=== PATIENT | male | born 2000 ===

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

== ENCOUNTER 2022-01-19 09:34 | Emergency (ER) | payer MEDICAID, SELFPAY ==
[2022-01-19 09:55] VITALS: BP 118/74; PULSE 75; RESP 18; TEMP 36.6; O2SAT 98; BMI 36.0
--- OUTSIDE RECORDS SUMMARY | 2022-01-19 10:10 | XMS_ITS | Continuity of Care Document ---
:2000 Author Organization [address], [address] [place] [address]- Care Team Providers Name Role Phone Gordon WALTER, Abhi Brice Primary Care Physician Encounter [facility] [place] Date(s): 05/01/20 - 05/31/[address], [address] [place], [place] [address] Allergies, Adverse Reactions, Alerts Substance Reaction Severity Status NKA Active Medications 19 g needle 19 g needle, See Instructions, # 2 each, Refills 1, Tot. Refills 1, Maintenance, use to mix Solu-Cortef, 09/01/14 15:14:59, Compound Start Date: 09/01/14 Status: Ordered3 mL syringe 3 mL syringe, See Instructions, # 2 each, Refills 11, Tot. Refills 11, Maintenance, Use to administer solu-cortef, 12/29/18 17:52:00 EDT, Compound Start Date: 12/29/18 Status: OrderedBD 3 ml 21g/1ml syringe BD 3 ml 21g/1ml syringe, See Instructions, # 2 each, Refills 1, Tot. Refills 1, Maintenance, use to administer Solu-Cortef, 09/01/14 15:11:38, Compound Start Date: 09/01/14 Status: OrderedCortef 5 mg oral tablet See Instructions, 2 tablets By Mouth in the morning, 1 tablet by mouth in the evening; double the dose and give every 6 hours in the setting of fever, # 120 tablet, 5 Refills, Maintenance, 08/04/19 15:59:00 EDT, [facility], 165, cm, 0... Start Date: 08/04/19 Status: Ordereddesmopressin 0.1 mg oral tablet 1 tablet = 0.1 mg, By Mouth, 2 times a day, Directions in Guyanese. 1 tablet, twice daily., # 180 tablet, 5 Refills, Maintenance, 01/17/20 9:49:00 EDT, Tablet, [facility], 164, cm, 12/09/19 10:04:00 EDT, Height, 94.8, kg, 12/09/19 10:0... Start Date: 01/17/20 Stop Date: 07/10/21 Status: OrderedFlintstones with Iron Chewable Multiple Vitamins with Iron oral tablet, chewable 1 tablet, Chew, Daily, # 30 tablet, 6 Refills, Maintenance, 03/18/17 17:46:27, Chew Tablet Start Date: 03/18/17 Status: Orderedhydrocortisone 100 mg preservative-free injection = 50 mg, IV Infusion, Once, # 1 each, 0 Refills, Soft Stop, 04/26/14 17:53:46, 50 mg IV Infusion Once Start Date: 04/26/14 Status: Orderedlevothyroxine 150 mcg (0.15 mg) oral tablet 1 tablet = 150 mcg, By Mouth, Daily, # 30 tablet, 11 Refills, Maintenance, 01/17/20 9:49:00 EDT, Tablet, [facility], dose change, 164, cm, 12/09/19 10:04:00 EDT, Height, 94.8, kg, 12/09/19 10:04:00 EDT, Dry Weight Start Date: 01/17/20 Stop Date: 01/11/21 Status: OrderedSolu-CORTEF Act-O-Vial 100 mg injection = 50 mg, Intramuscular, Once, # 1 each, 3 Refills, Soft Stop, 12/29/18 15:47:00 EDT Start Date: 12/29/18 Status: OrderedSolu-CORTEF Act-O-Vial 100 mg injection = 50 mg, Intramuscular, Once, # 1 each, 3 Refills, Soft Stop, 03/28/20 11:09:00 EST, [facility]/pharmacy #[id number], 164, cm, 03/24/20 9:10:00 EST, Height, 94.8, kg, 03/24/20 9:10:00 EST, Dry Weight Start Date: 03/28/20 Status: Orderedsyringe needle 25g x 1in syringe needle 25g x 1in, See Instructions, # 2 each, Refills 11, Tot. 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
--- OUTSIDE RECORDS SUMMARY | 2022-01-19 10:10 | XMS_ITS | Continuity of Care Document ---
:2000 Author Organization [facility] Address [address] [place] [phone]- Care Team Providers Name Role Phone Abhi Leyva MD Primary Care Physician Encounter [facility] [place] Date(s): 07/29/19 - 08/05/19 [facility] [address] [place] [phone]- [facility] Attending Physician: Zoey Servin MD Allergies, Adverse Reactions, Alerts Substance Reaction Severity Status NKA Active Medications 18 gauge needle 18 gauge needle, See Instructions, # 6 each, Refills 3, Tot. Refills 3, Maintenance, Use to draw up testosterone, 10/13/18 13:17:20 EDT, Compound Start Date: 10/13/18 Status: [id number] g needle 19 g needle, See Instructions, # 2 each, Refills 1, Tot. Refills 1, Maintenance, use to mix Solu-Cortef, 09/01/14 15:14:59, Compound Start Date: 09/01/14 Status: Ordered3 mL syringe 3 mL syringe, See Instructions, # 2 each, Refills 11, Tot. Refills 11, Maintenance, Use to administer solu-cortef, 12/29/18 17:52:00 EDT, Compound Start Date: 12/29/18 Status: [id number] syringe with 21G 1' needle 3ml syringe with 21G 1' needle, See Instructions, # 6 each, Refills 3, Tot. Refills 3, Maintenance, Use to administer testosterone every 2 weeks. Ok to substitute, 10/13/18 13:21:49 EDT, Compound Start Date: 10/13/18 Status: OrderedBD 3 ml 21g/1ml syringe BD [...] tablet, 5 Refills, Maintenance, 08/04/19 15:59:00 EDT, [facility], 165, cm, 0... Start Date: 08/04/19 Status: Ordereddesmopressin 0.1 mg oral tablet 1 tablet = 0.1 mg, By Mouth, 2 times a day, Directions in Armenian. 1 tablet, twice daily., # 180 tablet, 5 Refills, Maintenance, 01/20/19 13:45:21 EDT, Tablet Start Date: 01/20/19 Stop Date: 07/13/20 Status: OrderedFlintstones with Iron Chewable Multiple Vitamins with Iron oral tablet, chewable 1 tablet, Chew, Daily, # 30 tablet, 6 Refills, Maintenance, 03/18/17 17:46:27, Chew Tablet Start Date: 03/18/17 Status: OrderedGenotropin 13.8 mg subcutaneous injection See Instructions, subcutaneous injection daily. alternate between 0.2 mg daily MWFSun and 0.4 mg daily TThSat, # 1 each, 11 Refills, Maintenance, 03/04/19 9:49:16 EST, Product switch Start Date: 03/04/19 Status: Orderedhydrocortisone 100 mg preservative-free injection = 50 mg, IV Infusion, Once, # 1 each, 0 Refills, Soft Stop, 04/26/14 17:53:46, 50 mg IV Infusion Once Start Date: 04/26/14 Status: Orderedlevothyroxine 150 mcg (0.15 mg) oral tablet 1 tablet = 150 mcg, By Mouth, Daily, # 30 tablet, 11 Refills, Maintenance, 01/20/19 13:44:12 EDT, Tablet, dose change Start Date: 01/20/19 Stop Date: 01/15/20 Status: OrderedPen Fajardo, 31 G x 5 mm BD Ultra Fine III See Instructions, # 100 each, Refills 11, Tot. Refills 11, Maintenance, use to administer growth hormone, 10/29/18 9:19:54 EDT, Compound Start Date: 10/29/18 Status: Orderedphentermine 15 mg oral capsule 1 capsule = 15 mg, By Mouth, Daily in AM, # 30 capsule, 3 Refills, Acute 01/31/20 9:51:00 EDT, 01/29/19 9:51:32 EDT Start Date: 01/29/19 Stop Date: 01/31/20 Status: OrderedSolu-CORTEF Act-O-Vial 100 mg injection = 50 mg, Intramuscular, Once, # 1 each, 3 Refills, Soft Stop, 12/29/18 15:47:00 EDT Start Date: 12/29/18 Status: Orderedsyringe needle 25g x 1in syringe needle 25g x 1in, See Instructions, # 2 each, Refills 11, Tot. Refills 11, Maintenance, Use to administer solu-cortef, 12/29/18 17:52:00 EDT, Compound Start Date: 12/29/18 Status: Orderedtestosterone 4 mg/24 hr transdermal film, extended release 1, patch, Topically, Daily at bedtime, apply to back, abdomen, upper arms, or thighs. 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
--- OUTSIDE RECORDS SUMMARY | 2022-01-19 10:10 | XMS_ITS | Continuity of Care Document ---
:2000 Author Organization [facility] Address [address] [place] [address]- Care Team Providers Name Role Phone Abhi Leyva MD Primary Care Physician Encounter [facility] [id number] Date(s): 06/04/19 - 06/14/19 [facility] [address] [place] [address]- [place] Attending Physician: Admtr, Codey Admitting Physician: Admtr, Ar8 Referring Physician: Admtr, Ar8 Allergies, Adverse Reactions, Alerts Substance Reaction Severity Status NKA Active Medications 18 gauge needle 18 gauge needle, See Instructions, # 6 each, Refills 3, Tot. Refills 3, Maintenance, Use to draw up testosterone, 10/13/18 13:17:20 EDT, Compound Start Date: 10/13/18 Status: Mxujbap15 g needle 19 g needle, See Instructions, # 2 each, Refills 1, Tot. Refills 1, Maintenance, use to mix Solu-Cortef, 09/01/14 15:14:59, Compound Start Date: 09/01/14 Status: Ordered3 mL syringe 3 mL syringe, See Instructions, # 2 each, Refills 11, Tot. Refills 11, Maintenance, Use to administer solu-cortef, 12/29/18 17:52:00 EDT, Compound Start Date: 12/29/18 Status: [id number] syringe with 21G 1' needle 3ml syringe [...] fever, # 120 tablet, 5 Refills, Maintenance, 01/20/19 13:43:24 EDT Start Date: 01/20/19 Status: Ordereddesmopressin 0.1 mg oral tablet 1 tablet = 0.1 mg, By Mouth, 2 times a day, Directions in Uruguayan. 1 tablet, twice daily., # 180 tablet, [...] Date: 01/20/19 Stop Date: 01/15/20 Status: OrderedPen Koppel, 31 G x 5 mm BD Ultra [...] arms, or thighs. Pls send instructions in Uruguayan., # 30 patch, 5 Refills, Maintenance, Panhypopituitarism with hypogonadism Start Date: 03/01/19 Stop Date: 08/28/19 Status: Orderedtestosterone cypionate 200 mg/mL intramuscular solution See Instructions, dispense 2 vials for 30 day supply for home administration. 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
--- OUTSIDE RECORDS SUMMARY | 2022-01-19 10:10 | XMS_ITS | Continuity of Care Document ---
:2000 Author Organization [facility] Address [address] [place] [id number]- Care Team Providers Name Role Phone Gordon WALTER, Abhi Brice Primary Care Physician [place] [facility] [place](s): 03/24/20 - 04/23/20 [facility] [address] [place] [id number]- Attending Physician: Admtr, Ar8 Admitting Physician: Admtr, Ar8 Referring Physician: Admtr, [...] tablet, 5 Refills, Maintenance, 08/04/19 15:59:00 EDT, [facility], 165, cm, 0... Start Date: 08/04/19 Status: Ordereddesmopressin 0.1 mg oral tablet 1 tablet = 0.1 mg, By Mouth, 2 times a day, Directions in Cook Islander. 1 tablet, twice daily., # 180 tablet, 5 Refills, Maintenance, 01/17/20 9:49:00 EDT, Tablet, [facility], 164, cm, 12/09/19 10:04:00 EDT, Height, [...] 11 Refills, Maintenance, 01/17/20 9:49:00 EDT, Tablet, [facility], dose change, 164, cm, 12/09/19 10:04:00 [...] 3 Refills, Soft Stop, 03/28/20 11:09:00 EST, [facility]/pharmacy #[id number], 164, cm, 03/24/20 9:10:00 EST, Height, [...]
--- OUTSIDE RECORDS SUMMARY | 2022-01-19 10:10 | XMS_ITS | Continuity of Care Document ---
:2002 Author Organization [facility] Address [address] [place] [address]- Care Team Providers Name Role Phone Gordon WALTER, Abhi Brice Primary Care Physician Encounter [facility] [place] Date(s): 03/31/20 - 04/30/20 [facility] [address] [place] [address]- Allergies, Adverse Reactions, Alerts Substance Reaction Severity [...] tablet, 5 Refills, Maintenance, 08/04/19 15:59:00 EDT, [facility], 165, cm, 0... Start Date: 08/04/19 Status: Ordereddesmopressin 0.1 mg oral tablet 1 tablet = 0.1 mg, By Mouth, 2 times a day, Directions in Monegasque. 1 tablet, twice daily., # 180 tablet, 5 Refills, Maintenance, 01/17/20 9:49:00 EDT, Tablet, [facility], 164, cm, 12/09/19 10:04:00 EDT, [...] 11 Refills, Maintenance, 01/17/20 9:49:00 EDT, Tablet, [facility], dose change, 164, cm, 12/09/19 [...] 3 Refills, Soft Stop, 03/28/20 11:09:00 EST, [facility]/pharmacy #[id number], 164, cm, 03/24/20 9:10:00 EST, Height, [...]
--- OUTSIDE RECORDS SUMMARY | 2022-01-19 10:10 | XMS_ITS | Continuity of Care Document ---
:2000 Author Organization [facility] Address [address] [place] [id number]- Care Team Providers Name Role Phone Abhi Leyva MD Primary Care Physician [place] [facility] [place](s): 10/20/20 - 11/19/20 [facility] [address] [place] [id number]- Allergies, Adverse Reactions, Alerts Substance Reaction Severity [...] fever, # 120 tablet, 5 Refills, Maintenance, 10/26/20 15:33:00 EDT, [facility] #[id number], 164, cm, 05/31/20 9... Start Date: 10/26/20 Status: Ordereddesmopressin 0.1 mg oral tablet 1 tablet = 0.1 mg, By Mouth, 2 times a day, Directions in Danish. 1 tablet, twice daily., # 180 tablet, 5 Refills, Maintenance, 10/26/20 15:33:00 EDT, Tablet, [facility]/pharmacy #[id number], 164, cm, 05/31/20 9:06:00 EST, Height, 94.8, kg, 03/24/20 9:10:00 EST,... Start Date: 10/26/20 Stop Date: 04/19/22 Status: OrderedFlintstones with Iron Chewable Multiple Vitamins [...] Daily, # 30 tablet, 11 Refills, Maintenance, 10/26/20 15:34:00 EDT, Tablet, [facility]/pharmacy #[id number], dose change, 164, cm, 05/31/20 9:06:00 EST, Height, 94.8, kg, 03/24/20 9:10:00 EST, Dry Weight Start Date: 10/26/20 Stop Date: 10/21/21 Status: OrderedSolu-CORTEF Act-O-Vial 100 mg injection = 50 mg, Intramuscular, Once, # 1 each, 3 Refills, Soft Stop, 12/29/18 15:47:00 EDT Start Date: 12/29/18 Status: OrderedSolu-CORTEF Act-O-Vial 100 mg injection = 50 mg, Intramuscular, Once, # 1 each, 3 Refills, Soft Stop, 10/26/20 15:33:00 EDT, [facility]/pharmacy #[id number], 164, cm, 05/31/20 9:06:00 EST, Height, 94.8, kg, 03/24/20 9:10:00 EST, Dry Weight Start Date: 10/26/20 Status: Orderedsyringe needle 25g x 1in syringe [...]
--- OUTSIDE RECORDS SUMMARY | 2022-01-19 10:10 | XMS_ITS | Continuity of Care Document ---
:2000 Author Organization [facility] Address [address] [place] [id number]- Care Team Providers Name Role Phone Abhi Leyva MD Primary Care Physician [place] [facility] [place] 06/30/[address] [address] Attending Physician: Abhi Leyva MD Admitting Physician: Abhi Leyva MD Referring Physician: Abhi Leyva MD Allergies, Adverse Reactions, Alerts Substance Reaction [...] tablet, 5 Refills, Maintenance, 08/04/19 15:59:00 EDT, [facility], 165, cm, 0... Start Date: 08/04/19 Status: Ordereddesmopressin 0.1 mg oral tablet 1 tablet = 0.1 mg, By Mouth, 2 times a day, Directions in Botswanan. 1 tablet, twice daily., # 180 tablet, 5 Refills, Maintenance, 01/17/20 9:49:00 EDT, Tablet, [facility], 164, cm, 12/09/19 10:04:00 EDT, Height, [...] 11 Refills, Maintenance, 01/17/20 9:49:00 EDT, Tablet, [facility], dose change, 164, cm, 12/09/19 [...] Soft Stop, 03/28/20 11:09:00 EST, [facility]/pharmacy #[id number], 164, cm, 03/24/20 9:10:00 EST, Height, [...]
--- OUTSIDE RECORDS SUMMARY | 2022-01-19 10:10 | XMS_ITS | Continuity of Care Document ---
:2002 Author Organization [facility] Address [address] [place] [phone]- Care Team Providers Name Role Phone Abhi Leyva MD Primary Care Physician Encounter [facility] [place] Date(s): 04/05/19 - 04/12/19 [facility] [address] [place] [phone]- [facility] Attending Physician: Zoey Servin MD Referring Physician: Abhi Leyva MD Allergies, Adverse Reactions, Alerts Substance Reaction Severity Status NKA Active Medications 18 gauge needle 18 gauge needle, See Instructions, # 6 each, Refills 3, Tot. Refills 3, Maintenance, Use to draw up testosterone, 10/13/18 13:17:20 EDT, Compound Start Date: 10/13/18 Status: Inkuubb31 g needle 19 g needle, See Instructions, # 2 each, Refills 1, Tot. Refills 1, Maintenance, use to mix Solu-Cortef, 09/01/14 15:14:59, Compound Start Date: 09/01/14 Status: Ordered3 mL syringe 3 mL syringe, See Instructions, # 2 each, Refills 11, Tot. Refills 11, Maintenance, Use to administer solu-cortef, 12/29/18 17:52:00 EDT, Compound Start Date: 12/29/18 Status: [id number] syringe with 21G 1' needle 3ml syringe [...] Mouth, 2 times a day, Directions in Burkinan. 1 tablet, twice daily., # 180 tablet, [...] Date: 01/20/19 Stop Date: 01/15/20 Status: OrderedPen [place], 31 G x 5 mm BD Ultra [...] arms, or thighs. Pls send instructions in Burkinan., # 30 patch, 5 Refills, Maintenance, Panhypopituitarism with hypogonadism Start Date: 03/01/19 Stop Date: 08/28/19 Status: Orderedtestosterone cypionate 200 mg/mL intramuscular solution See Instructions, dispense 2 vials for 30 day supply for home administration. 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
--- OUTSIDE RECORDS SUMMARY | 2022-01-19 10:10 | XMS_ITS | Continuity of Care Document ---
:2002 Author Organization [facility] Address [address] [place] [id number]- Care Team Providers Name Role Phone Abhi Leyva MD Primary Care Physician Encounter [facility] [place] Date(s): 04/28/19 - 05/05/[address] [phone] [facility] Attending Physician: Zoey Servin MD Allergies, Adverse Reactions, Alerts Substance Reaction Severity Status NKA Active Medications 18 gauge needle 18 gauge needle, See Instructions, # 6 each, Refills 3, Tot. Refills 3, Maintenance, Use to draw up testosterone, 10/13/18 13:17:20 EDT, Compound Start Date: 10/13/18 Status: [id number] g needle 19 g needle, See Instructions, # 2 each, Refills 1, Tot. Refills 1, Maintenance, use to mix Solu-Cortef, 09/01/14 15:14:59, Compound Start Date: 09/01/14 Status: Ordered3 mL syringe 3 mL syringe, See Instructions, # 2 each, Refills 11, Tot. Refills 11, Maintenance, Use to administer solu-cortef, 12/29/18 17:52:00 EDT, Compound Start Date: 12/29/18 Status: Imblbyy2fo syringe with 21G 1' needle 3ml syringe [...] Mouth, 2 times a day, Directions in Japanese. 1 tablet, twice daily., # 180 tablet, [...] Date: 01/20/19 Stop Date: 01/15/20 Status: OrderedPen [place], 31 G x 5 mm BD Ultra [...] arms, or thighs. Pls send instructions in Japanese., # 30 patch, 5 Refills, Maintenance, Panhypopituitarism with hypogonadism Start Date: 03/01/19 Stop Date: 08/28/19 Status: Orderedtestosterone cypionate 200 mg/mL intramuscular solution See Instructions, dispense 2 vials for 30 day supply for home administration. 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
--- OUTSIDE RECORDS SUMMARY | 2022-01-19 10:10 | XMS_ITS | Continuity of Care Document ---
:2002 Author Organization [facility] Address [address] [place] [id number]- Care Team Providers Name Role Phone Abhi Leyva MD Primary Care Physician Encounter [facility] [place] Date(s): 10/24/21 - 11/23/21 [facility] [address] [place] [phone]- [place] Allergies, Adverse Reactions, Alerts No Known Allergies Medications Cortef 5 mg oral tablet See Instructions, 4 tablets By Mouth every 6 hours in the setting of fever, # 30 each, 11 Refills, Maintenance, 11/05/21 13:16:00 EDT, [facility], 165.7, cm, 01/30/21 13:27:00 EDT, Height, 95, kg, 01/30/21 13:27:00 EDT, Dry Weight Start Date: 11/05/21 Status: Ordereddesmopressin 0.1 mg oral tablet 1 tablet = 0.1 mg, By Mouth, 2 times a day, Directions in Cypriot. 1 tablet, twice daily., # 60 tablet, 11 Refills, Maintenance, 04/25/23 18:33:00 EST, Tablet, [facility], 165.7, cm, 01/30/21 13:27:00 EDT, Height, 95, kg, 01/30/21 13... Start Date: 04/25/23 Status: Ordereddesmopressin 0.1 mg oral tablet 1 tablet = 0.1 mg, By Mouth, 2 times a day, for 90 days, Directions in Cypriot. 1 tablet, twice daily., # 180 tablet, 5 Refills, Hard Stop 04/25/23 18:33:00 EST, 11/01/21 18:33:00 EDT, Tablet, [facility], 165.7, cm, 01/30/21 13:27:00... Start Date: 11/01/21 Stop Date: 04/25/23 Status: Ordereddexamethasone 0.5 mg oral tablet 0.5 tablet = 0.25 mg, By Mouth, Daily, # 15 tablet, 11 Refills, Maintenance, 11/05/21 13:16:00 EDT, [facility], Partial fill upon patient request if the prescription is for a scheduleII opioid drug., 165.7, cm, 01/30/21 13:27:00 EDT... Start Date: 11/05/21 Status: OrderedFlintstones with Iron Chewable Multiple Vitamins with Iron oral tablet, chewable 1 tablet, Chew, Daily, # 30 tablet, 6 Refills, Maintenance, 03/18/17 17:46:27, Chew Tablet Start Date: 03/18/17 Status: Orderedlevothyroxine 150 mcg (0.15 mg) oral tablet 1 tablet = 150 mcg, By Mouth, Daily, # 30 tablet, 11 Refills, Maintenance, 10/27/22 18:34:00 EDT, Tablet, [facility], dose change, 165.7, cm, 01/30/21 13:27:00 EDT, Height, 95, kg, 01/30/21 13:27:00 EDT, Dry Weight Start Date: 10/27/22 Status: Orderedlevothyroxine 150 mcg (0.15 mg) oral tablet 1 tablet = 150 mcg, By Mouth, Daily, for 30 days, # 30 tablet, 11 Refills, Hard Stop 10/27/22 18:34:00 EDT, 11/01/21 18:34:00 EDT, Tablet, [facility], dose change, 165.7, cm, 01/30/21 13:27:00 EDT, Height, 95, kg, 01/30/21 13:27:00 ED... Start Date: 11/01/21 Stop Date: 10/27/22 Status: OrderedSolu-CORTEF Act-O-Vial 100 mg injection = 50 mg, Intramuscular, Once, # 1 each, 11 Refills, Soft Stop, 11/05/21 13:16:00 EDT, [facility], 165.7, cm, 01/30/21 13:27:00 EDT, Height, 95, kg, 01/30/21 13:27:00 EDT, Dry Weight Start Date: 11/05/21 Status: Orderedsyringe needle 25g x 1in syringe needle 25g x 1in, See Instructions, # 1 each, Refills 11, Tot. Refills 11, Maintenance, Use to administer solu-cortef, 11/05/21 13:16:00 EDT, Compound, 165.7, cm, 01/30/21 13:27:00 EDT, Height,95, kg, 01/30/21 13:27:00 EDT, Dry Weight Start Date: 11/05/21 Status: Orderedtestosterone 20.25 mg/1.25 g (1.62%) transdermal gel 1 pack/packet, Topically, Daily in AM, apply to clean, dry, intact skin, # 30 pack/packet, 11 Refills, Maintenance, 11/05/21 13:16:00 EDT, Gel, [facility], Partial fill upon patient request if the prescription is for a schedule II op... 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
--- OUTSIDE RECORDS SUMMARY | 2022-01-19 10:11 | XMS_ITS | Continuity of Care Document ---
:2002 Author Organization [facility] Address [address] [place] [id number]- Care Team Providers Name Role Phone Abhi Leyva MD Primary Care Physician En[place] [facility] [place] Date(s): 12/29/19 - 01/28/20 [facility] [address] [place] [phone]- [facility] Allergies, Adverse Reactions, Alerts Substance Reaction Severity Status NKA Active Medications 18 gauge needle 18 gauge needle, See Instructions, # 6 each, Refills 3, Tot. Refills 3, Maintenance, Use to draw up testosterone, 10/13/18 13:17:20 EDT, Compound Start Date: 10/13/18 Status: Sfkdazz50 g needle 19 g needle, See Instructions, # 2 each, Refills 1, Tot. Refills 1, Maintenance, use to mix Solu-Cortef, 09/01/14 15:14:59, Compound Start Date: 09/01/14 Status: Ordered3 mL syringe 3 mL syringe, See Instructions, # 2 each, Refills 11, Tot. Refills 11, Maintenance, Use to administer solu-cortef, 12/29/18 17:52:00 EDT, Compound Start Date: 12/29/18 Status: Punumii9ft syringe with 21G 1' needle 3ml syringe with 21G 1' needle, See Instructions, # 6 each, Refills 3, Tot. Refills 3, Maintenance, Use to administer testosterone every 2 weeks. Ok to substitute, 10/13/18 13:21:49 EDT, Compound Start Date: 10/13/18 Status: OrderedAndroGel 20.25 mg (1.62%) transdermal gel 2 pack/packet, Topically, Daily in AM, apply to clean, dry, intact skin 2 doses a day, # 60 each, 11Refills, Maintenance, 12/10/19 14:27:00 EDT, [facility]/pharmacy #[id number], 164, cm, 12/09/19 10:04:00 EDT, Height, 94.8, kg, 12/09/19 10:04:00 EDT, Dry Weight Start Date: 12/10/19 Status: OrderedBD 3 ml 21g/1ml syringe BD [...] tablet, 5 Refills, Maintenance, 08/04/19 15:59:00 EDT, [facility], 165, cm, 0... Start Date: 08/04/19 Status: Ordereddesmopressin 0.1 mg oral tablet 1 tablet = 0.1 mg, By Mouth, 2 times a day, Directions in Ugandan. 1 tablet, twice daily., # 180 tablet, 5 Refills, Maintenance, 01/17/20 9:49:00 EDT, Tablet, [facility], 164, cm, 12/09/19 10:04:00 EDT, [...] TThSat, # 1 each, 11 Refills, Maintenance, 01/17/20 9:49:00 EDT, [facility], Product switch, 164, cm, 12/09/19 10:04:00 EDT, Height... Start Date: 01/17/20 Status: Orderedhydrocortisone 100 mg preservative-free injection = 50 mg, IV Infusion, Once, # 1 each, 0 Refills, Soft Stop, 04/26/14 17:53:46, 50 mg IV Infusion Once Start Date: 04/26/14 Status: Orderedlevothyroxine 150 mcg (0.15 mg) oral tablet 1 tablet = 150 mcg, By Mouth, Daily, # 30 tablet, 11 Refills, Maintenance, 01/17/20 9:49:00 EDT, Tablet, [facility], dose change, 164, cm, 12/09/19 10:04:00 EDT, Height, 94.8, kg, 12/09/19 10:04:00 EDT, Dry Weight Start Date: 01/17/20 Stop Date: 01/11/21 Status: OrderedPen [place], 31 G x 5 mm BD Ultra Fine III See Instructions, # 100 each, Refills 11, Tot. Refills 11, Maintenance, use to administer growth hormone, 11/01/19 9:11:00 EDT, Compound, 165, cm, 06/04/19 16:16:00 EST, Height, 95.1, kg, 04/05/19 15:41:00 EST, Dry Weight Start Date: 11/01/19 Status: Orderedphentermine 15 mg oral capsule 1 capsule = 15 mg, By Mouth, Daily in AM, # 30 capsule, 3 Refills, Maintenance, 01/03/20 10:14:00 EDT, [facility]/pharmacy #[id number], 164, cm, 12/09/19 10:04:00 EDT, Height, 94.8, kg, 12/09/19 10:04:00 EDT, Dry Weight Start Date: 01/03/20 Status: OrderedSolu-CORTEF Act-O-Vial 100 mg injection = [...] arms, or thighs. Pls send instructions in Ug[place]an., # 30 patch, 5 Refills, Maintenance, Panhypopituitarism [...]
--- OUTSIDE RECORDS SUMMARY | 2022-01-19 10:11 | XMS_ITS | Continuity of Care Document ---
:2002 Author Organization [facility] Address [address] [place] [address]- Care Team Providers Name Role Phone Abhi Leyva MD Primary Care Physician Encounter [facility] [place] Date(s): 06/07/19 - 06/17/19 [facility] [address] [place] [phone]- [facility] Attending Physician: Admtr, Ar8 Admitting Physician: Admtr, Ar8 Referring Physician: Admtr, Ar8 Allergies, Adverse Reactions, Alerts Substance Reaction Severity Status NKA Active Medications 18 gauge needle 18 gauge needle, See Instructions, # 6 each, Refills 3, Tot. Refills 3, Maintenance, Use to draw up testosterone, 10/13/18 13:17:20 EDT, Compound Start Date: 10/13/18 Status: Cwbxsef82 g needle 19 g needle, See Instructions, # 2 each, Refills 1, Tot. Refills 1, Maintenance, use to mix Solu-Cortef, 09/01/14 15:14:59, Compound Start Date: 09/01/14 Status: Ordered3 mL syringe 3 mL syringe, See Instructions, # 2 each, Refills 11, Tot. Refills 11, Maintenance, Use to administer solu-cortef, 12/29/18 17:52:00 EDT, Compound Start Date: 12/29/18 Status: Yvkmptb8br syringe with 21G 1' needle 3ml syringe [...] Mouth, 2 times a day, Directions in Fijian. 1 tablet, twice daily., # 180 tablet, [...] Date: 01/20/19 Stop Date: 01/15/20 Status: OrderedPen [place], 31 G x 5 mm BD Ultra [...] arms, or thighs. Pls send instructions in Fijian., # 30 patch, 5 Refills, Maintenance, Panhypopituitarism with hypogonadism Start Date: 03/01/19 Stop Date: 08/28/19 Status: Orderedtestosterone cypionate 200 mg/mL intramuscular solution See Instructions, dispense 2 vials for 30 day supply for home administration. 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
--- OUTSIDE RECORDS SUMMARY | 2022-01-19 10:11 | XMS_ITS | Continuity of Care Document ---
:2002 Author Organization [facility] Address [address] [place] [id number]- Care Team Providers Name Role Phone Abhi Leyva MD Primary Care Physician [place] [facility] [place] Date(s): 10/25/21 - 11/24/21 [facility] [address] [place] [id number]- Allergies, Adverse Reactions, Alerts No Known Allergies Medications Cortef 5 mg oral tablet See Instructions, 4 tablets By Mouth every 6 hours in the setting of fever, # 30 each, 11 Refills, Maintenance, 11/05/21 13:16:00 EDT, [facility], 165.7, cm, 01/30/21 13:27:00 EDT, Height, 95, kg, 01/30/21 13:27:00 EDT, Dry Weight Start Date: 11/05/21 Status: Ordereddesmopressin 0.1 mg oral tablet 1 tablet = 0.1 mg, By Mouth, 2 times a day, Directions in Liberian. 1 tablet, twice daily., # 60 tablet, 11 Refills, Maintenance, 04/25/23 18:33:00 EST, Tablet, [facility], 165.7, cm, 01/30/21 13:27:00 EDT, Height, 95, kg, 01/30/21 13... Start Date: 04/25/23 Status: Ordereddesmopressin 0.1 mg oral tablet 1 tablet = 0.1 mg, By Mouth, 2 times a day, for 90 days, Directions in Liberian. 1 tablet, twice daily., # 180 tablet, 5 Refills, Hard Stop 04/25/23 18:33:00 EST, 11/01/21 18:33:00 EDT, Tablet, [facility], 165.7, cm, 01/30/21 13:27:00... Start Date: 11/01/21 Stop Date: 04/25/23 Status: Ordereddexamethasone 0.5 mg oral tablet 0.5 tablet = 0.25 mg, By Mouth, Daily, # 15 tablet, 11 Refills, Maintenance, 11/05/21 13:16:00 EDT, [facility], Partial fill upon patient request if the [...] 11 Refills, Maintenance, 10/27/22 18:34:00 EDT, Tablet, [facility], dose change, 165.7, cm, 01/30/21 13:27:00 EDT, Height, 95, kg, 01/30/21 13:27:00 EDT, Dry Weight Start Date: 10/27/22 Status: Orderedlevothyroxine 150 mcg (0.15 mg) oral tablet 1 tablet = 150 mcg, By Mouth, Daily, for 30 days, # 30 tablet, 11 Refills, Hard Stop 10/27/22 18:34:00 EDT, 11/01/21 18:34:00 EDT, Tablet, [facility], dose change, 165.7, cm, 01/30/21 13:27:00 EDT, Height, 95, kg, 01/30/21 13:27:00 ED... Start Date: 11/01/21 Stop Date: 10/27/22 Status: OrderedSolu-CORTEF Act-O-Vial 100 mg injection = 50 mg, Intramuscular, Once, # 1 each, 11 Refills, Soft Stop, 11/05/21 13:16:00 EDT, [facility], 165.7, cm, 01/30/21 13:27:00 EDT, Height, 95, [...] 11 Refills, Maintenance, 11/05/21 13:16:00 EDT, Gel, [facility], Partial fill upon patient request if the [...]
--- OUTSIDE RECORDS SUMMARY | 2022-01-19 10:11 | XMS_ITS | Continuity of Care Document ---
:2002 Author Organization [facility] Address [address] [place] [address]- Care Team Providers Name Role Phone Thompson MILLS, Rut Burnham Primary Care Physician Encounter [facility] [place] [place] Date(s): 12/10/21 - 01/09/22 [facility] [address] [place] [phone]- Attending Physician: Codey Mathew Admitting Physician: Codey Mathew Referring Physician: Codey Mathew Allergies, Adverse Reactions, Alerts No Known Allergies Medications Cortef 5 mg oral tablet See Instructions, 4 tablets By Mouth every 6 hours in the setting of fever, # 30 each, 11 Refills, Maintenance, 11/05/21 13:16:00 EDT, [employer] [facility], 165.7, cm, 01/30/21 13:27:00 EDT, Height, 95, kg, 01/30/21 13:27:00 EDT, Dry Weight Start Date: 11/05/21 Status: Ordereddesmopressin 0.1 mg oral tablet 1 tablet = 0.1 mg, By Mouth, 2 times a day, Directions in Northern Irish. 1 tablet, twice daily., # 60 tablet, 11 Refills, Maintenance, 04/25/23 18:33:00 EST, Tablet, [employer] [facility], 165.7, cm, 01/30/21 13:27:00 EDT, Height, 95, kg, 01/30/21 13... Start Date: 04/25/23 Status: Ordereddesmopressin 0.1 mg oral tablet 1 tablet = 0.1 mg, By Mouth, 2 times a day, for 90 days, Directions in Northern Irish. 1 tablet, twice daily., # 180 tablet, 5 Refills, Hard Stop 04/25/23 18:33:00 EST, 11/01/21 18:33:00 EDT, Tablet, [facility], 165.7, cm, 01/30/21 13:27:00... Start Date: 11/01/21 Stop Date: 04/25/23 Status: Ordereddexamethasone 0.5 mg oral tablet 0.5 tablet = 0.25 mg, By Mouth, Daily, # 15 tablet, 11 Refills, Maintenance, 11/05/21 13:16:00 EDT, [facility], Partial fill upon patient request if the [...] 11 Refills, Maintenance, 10/27/22 18:34:00 EDT, Tablet, [facility], dose change, 165.7, cm, 01/30/21 13:27:00 EDT, Height, 95, kg, 01/30/21 13:27:00 EDT, Dry Weight Start Date: 10/27/22 Status: Orderedlevothyroxine 150 mcg (0.15 mg) oral tablet 1 tablet = 150 mcg, By Mouth, Daily, for 30 days, # 30 tablet, 11 Refills, Hard Stop 10/27/22 18:34:00 EDT, 11/01/21 18:34:00 EDT, Tablet, [facility], dose change, 165.7, cm, 01/30/21 13:27:00 EDT, Height, 95, kg, 01/30/21 13:27:00 ED... Start Date: 11/01/21 Stop Date: 10/27/22 Status: OrderedSkytrofa 13.3 mg subcutaneous injection = 13.3 mg, Subcutaneous Infusion, Every Friday, # 4 each, 5 Refills, Maintenance, 12/11/21 12:20:00 EDT, [facility], Partial fill upon patient request if the prescription is for a schedule II opioid drug., 165.6, cm, 12/10/21 11:26:00... Start Date: 12/11/21 Status: OrderedSolu-CORTEF Act-O-Vial 100 mg injection = 50 mg, Intramuscular, Once, # 1 each, 11 Refills, Soft Stop, 11/05/21 13:16:00 EDT, [employer] [facility], 165.7, cm, 01/30/21 13:27:00 EDT, Height, 95, [...] 11 Refills, Maintenance, 11/05/21 13:16:00 EDT, Gel, [employer] [facility], Partial fill upon patient request if the prescription is for a schedule II op... Start Date: 11/05/21 Status: Orderedtestosterone enanthate 100 mg/0.5 mL subcutaneous solution 0.5 mL = 100 mg, Subcutaneous Injection, Every week, # 2.5 mL, 5 Refills, Maintenance, 12/10/21 13:28:00 EDT, Solution, [facility], Partial fill upon patient request if the prescription is for a schedule II opioid drug., 165.6, cm, 08... 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
--- OUTSIDE RECORDS SUMMARY | 2022-01-19 10:11 | XMS_ITS | Continuity of Care Document ---
:2002 Author Organization [facility] Address [address] [place] [address]- Care Team Providers Name Role Phone Abhi Leyva MD Primary Care Physician [place] [facility] [place]20 [facility] [address] [place] [id number]- [facility] Allergies, Adverse Reactions, Alerts Substance Reaction Severity Status NKA Active Medications 18 gauge needle 18 gauge needle, See Instructions, # 6 each, Refills 3, Tot. Refills 3, Maintenance, Use to draw up testosterone, 10/13/18 13:17:20 EDT, Compound Start Date: 10/13/18 Status: Clnjvhg09 g needle 19 g needle, See Instructions, # 2 each, Refills 1, Tot. Refills 1, Maintenance, use to mix Solu-Cortef, 09/01/14 15:14:59, Compound Start Date: 09/01/14 Status: Ordered3 mL syringe 3 mL syringe, See Instructions, # 2 each, Refills 11, Tot. Refills 11, Maintenance, Use to administer solu-cortef, 12/29/18 17:52:00 EDT, Compound Start Date: 12/29/18 Status: Xfnenxw7jk syringe with 21G 1' needle 3ml syringe [...] 60 each, 11Refills, Maintenance, 12/10/19 14:27:00 EDT, [facility]/pharmacy #[id number], 164, cm, 12/09/19 10:04:00 EDT, Height, [...] tablet, 5 Refills, Maintenance, 08/04/19 15:59:00 EDT, [facility], 165, cm, 0... Start Date: 08/04/19 Status: Ordereddesmopressin 0.1 mg oral tablet 1 tablet = 0.1 mg, By Mouth, 2 times a day, Directions in [place] Citizen. 1 tablet, twice daily., # 180 tablet, 5 Refills, Maintenance, 01/17/20 9:49:00 EDT, Tablet, [facility], 164, cm, 12/09/19 10:04:00 EDT, [...] each, 11 Refills, Maintenance, 01/17/20 9:49:00 EDT, [facility], Product switch, 164, cm, 12/09/19 [...] 11 Refills, Maintenance, 01/17/20 9:49:00 EDT, Tablet, [facility], dose change, 164, cm, 12/09/19 10:04:00 EDT, Height, 94.8, kg, 12/09/19 10:04:00 EDT, Dry Weight Start Date: 01/17/20 Stop Date: 01/11/21 Status: OrderedPen [place], 31 G x 5 mm BD Ultra [...] capsule, 3 Refills, Maintenance, 01/03/20 10:14:00 EDT, [facility]/pharmacy #[id number], 164, cm, 12/09/19 10:04:00 EDT, Height, [...] arms, or thighs. Pls send instructions in [place] Citizen., # 30 patch, 5 Refills, Maintenance, Panhypopituitarism [...]
--- OUTSIDE RECORDS SUMMARY | 2022-01-19 10:11 | XMS_ITS | Continuity of Care Document ---
:2002 Author Organization [facility] Address [address] [place] [phone]- Care Team Providers Name Role Phone Gordon WALTER, Abhi Brice Primary Care Physician Encounter [facility] [place] Date(s): 12/25/19 - 04/23/20 [facility] [address] [place] [phone]- Attending Physician: Zoey Servin MD Admitting Physician: Zoey Servin MD Allergies, Adverse Reactions, [...] tablet, 5 Refills, Maintenance, 08/04/19 15:59:00 EDT, [facility], 165, cm, 0... Start Date: 08/04/19 Status: Ordereddesmopressin 0.1 mg oral tablet 1 tablet = 0.1 mg, By Mouth, 2 times a day, Directions in Tanzanian. 1 tablet, twice daily., # 180 tablet, 5 Refills, Maintenance, 01/17/20 9:49:00 EDT, Tablet, [facility], 164, cm, 12/09/19 10:04:00 [...] 11 Refills, Maintenance, 01/17/20 9:49:00 EDT, Tablet, [facility], dose change, 164, cm, 12/09/19 [...] 3 Refills, Soft Stop, 03/28/20 11:09:00 EST, [facility]/pharmacy #[id number], 164, cm, 03/24/20 9:10:00 EST, Height, [...]
--- OUTSIDE RECORDS SUMMARY | 2022-01-19 10:11 | XMS_ITS | Continuity of Care Document ---
:2002 Author Organization [facility] Address [address] [place] [phone]- Care Team Providers Name Role Phone Gordon WALTER, Abhi Brice Primary Care Physician [place] [facility] [place]20 - 12/31/20 [facility] [address] [place] [phone]- [place] Allergies, Adverse Reactions, Alerts Substance Reaction Severity [...] tablet, 5 Refills, Maintenance, 10/26/20 15:33:00 EDT, [facility]/pharmacy #[id number], 164, cm, 05/31/20 9... Start Date: 10/26/20 Status: Ordereddesmopressin 0.1 mg oral tablet 1 tablet = 0.1 mg, By Mouth, 2 times a day, Directions in Cymro. 1 tablet, twice daily., # 180 tablet, 5 Refills, Maintenance, 10/26/20 15:33:00 EDT, Tablet, [facility]/pharmacy #[id number], 164, cm, 05/31/20 9:06:00 EST, Height, [...] 11 Refills, Maintenance, 10/26/20 15:34:00 EDT, Tablet, [facility]/pharmacy #[id number], dose change, 164, cm, 05/31/20 9:06:00 [...] 3 Refills, Soft Stop, 10/26/20 15:33:00 EDT, [facility]/pharmacy #[id number], 164, cm, 05/31/20 9:06:00 EST, Height, [...]
--- OUTSIDE RECORDS SUMMARY | 2022-01-19 10:11 | XMS_ITS | Continuity of Care Document ---
:2002 Author Organization [address], [address] [place] [address]- Care Team Providers Name Role Phone Gordon WALTER, Abhi Brice Primary Care Physician Encounter [facility] [place] Date(s): 05/31/20 - 06/30/[address], [address] [place], [place] [address] Attending Physician: Admtr, Ar8 Admitting Physician: Admtr, [...] 5 Refills, Maintenance, 08/04/19 15:59:00 EDT, [facility], 165, cm, 0... Start Date: 08/04/19 Status: Ordereddesmopressin 0.1 mg oral tablet 1 tablet = 0.1 mg, By Mouth, 2 times a day, Directions in Luxembourgish. 1 tablet, twice daily., # 180 tablet, 5 Refills, Maintenance, 01/17/20 9:49:00 EDT, Tablet, [facility], 164, cm, 12/09/19 10:04:00 EDT, [...] 11 Refills, Maintenance, 01/17/20 9:49:00 EDT, Tablet, [facility], dose change, 164, cm, 12/09/19 [...] 3 Refills, Soft Stop, 03/28/20 11:09:00 EST, [facility]/pharmacy #[id number], 164, cm, 03/24/20 9:10:00 EST, Height, [...]
--- OUTSIDE RECORDS SUMMARY | 2022-01-19 10:11 | XMS_ITS | Continuity of Care Document ---
:2002 Author Organization [facility] Address [address] [place] [address]- Care Team Providers Name Role Phone Gordon WALTER, Abhi Brice Primary Care Physician Encounter [facility] [place] Date(s): 05/11/20 - 06/10/20 [facility] [address] [place] [address]- Attending Physician: Admtr, Ar8 Admitting Physician: Admtr, [...] tablet, 5 Refills, Maintenance, 08/04/19 15:59:00 EDT, [facility], 165, cm, 0... Start Date: 08/04/19 Status: Ordereddesmopressin 0.1 mg oral tablet 1 tablet = 0.1 mg, By Mouth, 2 times a day, Directions in Omani. 1 tablet, twice daily., # 180 tablet, 5 Refills, Maintenance, 01/17/20 9:49:00 EDT, Tablet, [facility], 164, cm, 12/09/19 10:04:00 EDT, [...] 11 Refills, Maintenance, 01/17/20 9:49:00 EDT, Tablet, [facility], dose change, 164, cm, 12/09/19 [...] 3 Refills, Soft Stop, 03/28/20 11:09:00 EST, [facility]/pharmacy #[id number], 164, cm, 03/24/20 9:10:00 EST, [...]
--- OUTSIDE RECORDS SUMMARY | 2022-01-19 10:11 | XMS_ITS | Continuity of Care Document ---
:2002 Author Organization [facility] Address [address] [place] [phone]- Care Team Providers Name Role Phone Thompson MILLS, Rut Burnham Primary Care Physician Encounter [facility] [place] Date(s): 12/03/21 - 01/02/22 [facility] [address] [place] [phone]- Allergies, Adverse Reactions, Alerts No Known Allergies Medications Cortef 5 mg oral tablet See Instructions, 4 tablets By Mouth every 6 hours in the setting of fever, # 30 each, 11 Refills, Maintenance, 11/05/21 13:16:00 EDT, [email or web address], 165.7, cm, 01/30/21 13:27:00 EDT, Height, 95, kg, 01/30/21 13:27:00 EDT, Dry Weight Start Date: 11/05/21 Status: Ordereddesmopressin 0.1 mg oral tablet 1 tablet = 0.1 mg, By Mouth, 2 times a day, Directions in Rwandan. 1 tablet, twice daily., # 60 tablet, 11 Refills, Maintenance, 04/25/23 18:33:00 EST, Tablet, [email or web address], 165.7, cm, 01/30/21 13:27:00 EDT, Height, 95, kg, 01/30/21 13... Start Date: 04/25/23 Status: Ordereddesmopressin 0.1 mg oral tablet 1 tablet = 0.1 mg, By Mouth, 2 times a day, for 90 days, Directions in Rwandan. 1 tablet, twice daily., # 180 tablet, 5 Refills, Hard Stop 04/25/23 18:33:00 EST, 11/01/21 18:33:00 EDT, Tablet, [facility], 165.7, cm, 01/30/21 13:27:00... Start Date: 11/01/21 Stop Date: 04/25/23 Status: Ordereddexamethasone 0.5 mg oral tablet 0.5 tablet = 0.25 mg, By Mouth, Daily, # 15 tablet, 11 Refills, Maintenance, 11/05/21 13:16:00 EDT, [email or web address], Partial fill upon patient request if the [...] 11 Refills, Maintenance, 10/27/22 18:34:00 EDT, [facility]t, [facility], dose [facility], 165.7, cm, 01/30/21 13:27:00 EDT, Height, 95, kg, 01/30/21 13:27:00 EDT, Dry Weight Start Date: 10/27/22 Status: Orderedlevothyroxine 150 mcg (0.15 mg) oral tablet 1 tablet = 150 mcg, By Mouth, Daily, for 30 days, # 30 tablet, 11 Refills, Hard Stop 10/27/22 18:34:00 EDT, 11/01/21 18:34:00 EDT, Tablet, [facility], dose change, 165.7, cm, 01/30/21 13:27:00 EDT, Height, 95, kg, 01/30/21 13:27:00 ED... Start Date: 11/01/21 Stop Date: 10/27/22 Status: OrderedSkytrofa 13.3 mg subcutaneous injection = 13.3 mg, Subcutaneous Infusion, Every Friday, # 4 each, 5 Refills, Maintenance, 12/11/21 12:20:00 EDT, [facility], Partial fill upon patient request if the prescription is for a schedule II opioid drug., 165.6, cm, 12/10/21 11:26:00... Start Date: 12/11/21 Status: OrderedSolu-CORTEF Act-O-Vial 100 mg injection = 50 mg, Intramuscular, Once, # 1 each, 11 Refills, Soft Stop, 11/05/21 13:16:00 EDT, [email or web address], 165.7, cm, 01/30/21 13:27:00 EDT, Height, 95, [...] 11 Refills, Maintenance, 11/05/21 13:16:00 EDT, Gel, [email or web address], Partial fill upon patient request if the prescription is for a schedule II op... Start Date: 11/05/21 Status: Orderedtestosterone enanthate 100 mg/0.5 mL subcutaneous solution 0.5 mL = 100 mg, Subcutaneous Injection, Every week, # 2.5 mL, 5 Refills, Maintenance, 12/10/21 13:28:00 EDT, Solution, [facility], Partial fill upon patient [...] Care Team PersonnelName: Rut Mackay NP Address: [address] [place] [phone]-
--- OUTSIDE RECORDS SUMMARY | 2022-01-19 10:11 | XMS_ITS | Continuity of Care Document ---
:2002 Author Organization [facility] Address [address] [place] [phone]- Care Team Providers Name Role Phone Gordon WALTER, Abhi Brice Primary Care Physician Encounter [facility] [place] Date(s): 08/13/21 - 09/12/21 [facility] [address] [place] [phone]- [place] Allergies, Adverse Reactions, Alerts No Known Allergies Medications 19 g needle 19 g needle, See Instructions, # 2 each, Refills 1, Tot. Refills 1, Maintenance, use to mix Solu-Cortef, 09/01/14 15:14:59, Compound Start Date: 09/01/14 Status: OrderedBD 3 ml 21g/1ml syringe BD 3 ml 21g/1ml syringe, See Instructions, # 2 each, Refills 1, Tot. Refills 1, Maintenance, use to administer Solu-Cortef, 09/01/14 15:11:38, Compound Start Date: 09/01/14 Status: OrderedCortef 5 mg oral tablet See Instructions, 4 tablets By Mouth every 6 hours in the setting of fever, # 120 tablet, 5 Refills,Maintenance, 01/30/21 13:45:00 EDT, [id number], 165.7, cm, 01/30/21 13:27:00 EDT, Height, 95, kg, 01/30/21 13:27:00 EDT, Dry Weight Start Date: 01/30/21 Status: Ordereddesmopressin 0.1 mg oral tablet 1 tablet = 0.1 mg, By Mouth, 2 times a day, Directions in Niuean. 1 tablet, twice daily., # 180 tablet, 5 Refills, Maintenance, 04/19/22 15:33:00 EST, Tablet, [id number], 165.7, cm, 01/30/21 13:27:00 EDT, Height, 95, kg, 01/30/21 13:27:00 EDT... Start Date: 04/19/22 Stop Date: 10/11/23 Status: Ordereddexamethasone 0.5 mg oral tablet 0.5 tablet = 0.25 mg, By Mouth, Daily, # 15 tablet, 11 Refills, Maintenance, 05/25/21 11:54:00 EST, [facility]/pharmacy #[id number], Partial fill upon patient request if the prescription is for a schedule II opioiddrug., 165.7, cm, 01/30/21 13:27:00 EDT, Height,... Start Date: 05/25/21 Status: OrderedFlintstones with Iron Chewable Multiple Vitamins with Iron oral tablet, chewable 1 tablet, Chew, Daily, # 30 tablet, 6 Refills, Maintenance, 03/18/17 17:46:27, Chew Tablet Start Date: 03/18/17 Status: Orderedlevothyroxine 150 mcg (0.15 mg) oral tablet 1 tablet = 150 mcg, By Mouth, Daily, # 30 tablet, 11 Refills, Maintenance, 10/21/21 15:34:00 EDT, Tablet, [facility]/pharmacy #[id number], dose change, 165.7, cm, 01/30/21 13:27:00 EDT, Height, 95, kg, 01/30/21 13:27:00 EDT, Dry Weight Start Date: 10/21/21 Stop Date: 10/16/22 Status: OrderedSolu-CORTEF Act-O-Vial 100 mg injection = 50 mg, Intramuscular, Once, # 1 each, 3 Refills, Soft Stop, 10/26/20 15:33:00 EDT, [id number], 164, cm, 05/31/20 9:06:00 EST, Height, 94.8, kg, 03/24/20 9:10:00 EST, Dry Weight Start Date: 10/26/20 Status: Orderedsyringe needle 25g x 1in syringe needle 25g x 1in, See Instructions, # 2 each, Refills 11, Tot. Refills 11, Maintenance, Use to administer solu-cortef, 12/29/18 17:52:00 EDT, Compound Start Date: 12/29/18 Status: Orderedtestosterone 20.25 mg/1.25 g (1.62%) transdermal gel 1 pack/packet, Topically, Daily in AM, apply to clean, dry, intact skin, # 30 each, 5 Refills, Maintenance, 09/04/21 12:53:00 EDT, Gel, [facility]/pharmacy #[id number], Partial fill upon patient request if the prescription is for a schedule II opioid drug., 165.7,... 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
--- OUTSIDE RECORDS SUMMARY | 2022-01-19 10:11 | XMS_ITS | Continuity of Care Document ---
:2002 Author Organization [facility] Address [address] [place] [phone]- Care Team Providers Name Role Phone Gordon WALTER, Abhi Brice Primary Care Physician Encounter [facility] [place] Date(s): 09/03/21 - 10/03/21 [facility] [address] [place] [phone]- [place] Allergies, Adverse Reactions, Alerts No Known [...] Mouth, 2 times a day, Directions in Nepali. 1 tablet, twice daily., # 180 tablet, 5 Refills, Maintenance, 04/19/22 15:33:00 EST, Tablet, [id number], 165.7, cm, 01/30/21 13:27:00 EDT, Height, 95, kg, 01/30/21 13:27:00 EDT... Start Date: 04/19/22 Stop Date: 10/11/23 Status: Ordereddexamethasone 0.5 mg oral tablet 0.5 tablet = 0.25 mg, By Mouth, Daily, # 15 tablet, 11 Refills, Maintenance, 05/25/21 11:54:00 EST, [facility]/pharmacy #[id number], Partial fill upon patient [...] 11 Refills, Maintenance, 10/21/21 15:34:00 EDT, Tablet, [facility]/pharmacy #[id number], dose change, 165.7, cm, [...] 5 Refills, Maintenance, 09/04/21 12:53:00 EDT, Gel, [facility]/pharmacy #[id number], Partial fill upon patient request if the [...]
--- OUTSIDE RECORDS SUMMARY | 2022-01-19 10:11 | XMS_ITS | Continuity of Care Document ---
:2002 Author Organization [facility] Address [address] [place] [address]- Care Team Providers Name Role Phone Abhi Leyva MD Primary Care Physician [place] [facility] [place] 07/[place] - 08/08/19 [facility] [address] [place] [address]- [facility] Attending Physician: Admtr, Ar8 Admitting Physician: Admtr, Ar8 Referring Physician: Admtr, Ar8 Allergies, Adverse Reactions, Alerts Substance Reaction Severity Status NKA Active Medications 18 gauge needle 18 gauge needle, See Instructions, # 6 each, Refills 3, Tot. Refills 3, Maintenance, Use to draw up testosterone, 10/13/18 13:17:20 EDT, Compound Start Date: 10/13/18 Status: [id number] g needle 19 g needle, See Instructions, # 2 each, Refills 1, Tot. Refills 1, Maintenance, use to mix Solu-Cortef, 09/01/14 15:14:59, Compound Start Date: 09/01/14 Status: Ordered3 mL syringe 3 mL syringe, See Instructions, # 2 each, Refills 11, Tot. Refills 11, Maintenance, Use to administer solu-cortef, 12/29/18 17:52:00 EDT, Compound Start Date: 12/29/18 Status: [id number] syringe with 21G 1' needle 3ml syringe [...] tablet, 5 Refills, Maintenance, 08/04/19 15:59:00 EDT, [facility], 165, cm, 0... Start Date: [...] Date: 01/20/19 Stop Date: 01/15/20 Status: OrderedPen [place], 31 G x 5 mm BD Ultra [...] arms, or thighs. Pls send instructions in Guyanese., # 30 patch, 5 Refills, Maintenance, Panhypopituitarism [...]
--- OUTSIDE RECORDS SUMMARY | 2022-01-19 10:11 | XMS_ITS | Continuity of Care Document ---
:2002 Author Organization [facility] Address [address] [place] [address]- Care Team Providers Name Role Phone Abhi Leyva MD Primary Care Physician Encounter [facility] [place] Date(s): 04/27/20 - 06/10/20 [facility] [address] [place] [address]- Attending Physician: Carolyn Santoro MD Admitting Physician: Carolyn Santoro MD Referring Physician: Abhi Leyva MD Allergies, [...] tablet, 5 Refills, Maintenance, 08/04/19 15:59:00 EDT, [facility], 165, cm, 0... Start Date: 08/04/19 Status: Ordereddesmopressin 0.1 mg oral tablet 1 tablet = 0.1 mg, By Mouth, 2 times a day, Directions in Maldivian. 1 tablet, twice daily., # 180 tablet, 5 Refills, Maintenance, 01/17/20 9:49:00 EDT, Tablet, [facility], 164, cm, 12/09/19 10:04:00 EDT, [...] 11 Refills, Maintenance, 01/17/20 9:49:00 EDT, Tablet, [facility], dose change, 164, cm, 12/09/19 [...] 3 Refills, Soft Stop, 03/28/20 11:09:00 EST, [facility]/pharmacy #[id number], 164, cm, 03/24/20 9:10:00 EST, [...]
--- OUTSIDE RECORDS SUMMARY | 2022-01-19 10:11 | XMS_ITS | Continuity of Care Document ---
:2002 Author Organization [facility] Address [address] [place] [phone]- Care Team Providers Name Role Phone Abhi Leyva MD Primary Care Physician [place] [facility] [place] 10[place] 11/25/21 [facility] [address] [place] [phone]- Allergies, Adverse Reactions, Alerts No Known Allergies Medications Cortef 5 mg oral tablet See Instructions, 4 tablets By Mouth every 6 hours in the setting of fever, # 30 each, 11 Refills, Maintenance, 11/05/21 13:16:00 EDT, [facility], 165.7, cm, 01/30/21 13:27:00 EDT, Height, 95, kg, 01/30/21 13:27:00 EDT, Dry Weight Start Date: 11/05/21 Status: Ordereddesmopressin 0.1 mg oral tablet 1 tablet = 0.1 mg, By Mouth, 2 times a day, Directions in Panamanian. 1 tablet, twice daily., # 60 tablet, 11 Refills, Maintenance, 04/25/23 18:33:00 EST, Tablet, [facility], 165.7, cm, 01/30/21 13:27:00 EDT, Height, 95, kg, 01/30/21 13... Start Date: 04/25/23 Status: Ordereddesmopressin 0.1 mg oral tablet 1 tablet = 0.1 mg, By Mouth, 2 times a day, for 90 days, Directions in Panamanian. 1 tablet, twice daily., # 180 tablet, 5 Refills, Hard Stop 04/25/23 18:33:00 EST, 11/01/21 18:33:00 EDT, Tablet, [facility], 165.7, cm, 01/30/21 13:27:00... Start Date: 11/01/21 Stop Date: 04/25/23 Status: Ordereddexamethasone 0.5 mg oral tablet 0.5 tablet = 0.25 mg, By Mouth, Daily, # 15 tablet, 11 Refills, Maintenance, 11/05/21 13:16:00 EDT, [facility], Partial fill upon patient request if the [...] 11 Refills, Maintenance, 10/27/22 18:34:00 EDT, Tablet, [facility], dose change, 165.7, cm, 01/30/21 13:27:00 EDT, Height, 95, kg, 01/30/21 13:27:00 EDT, Dry Weight Start Date: 10/27/22 Status: Orderedlevothyroxine 150 mcg (0.15 mg) oral tablet 1 tablet = 150 mcg, By Mouth, Daily, for 30 days, # 30 tablet, 11 Refills, Hard Stop 10/27/22 18:34:00 EDT, 11/01/21 18:34:00 EDT, Tablet, [facility], dose change, 165.7, cm, 01/30/21 13:27:00 EDT, Height, 95, kg, 01/30/21 13:27:00 ED... Start Date: 11/01/21 Stop Date: 10/27/22 Status: OrderedSolu-CORTEF Act-O-Vial 100 mg injection = 50 mg, Intramuscular, Once, # 1 each, 11 Refills, Soft Stop, 11/05/21 13:16:00 EDT, [facility], 165.7, cm, 01/30/21 13:27:00 EDT, Height, 95, [...] 11 Refills, Maintenance, 11/05/21 13:16:00 EDT, Gel, [facility], Partial fill upon patient request if the [...]
--- OUTSIDE RECORDS SUMMARY | 2022-01-19 10:11 | XMS_ITS | Continuity of Care Document ---
:2002 Author Organization [facility] Address [address] [place] [address]- Care Team Providers Name Role Phone Abhi Leyva MD Primary Care Physician [place] [facility] [place]s): 05/25/21 - 06/24/21 [facility] [address] [place] [phone]- Attending Physician: Codey Mathew Admitting Physician: Codey Mathew Referring Physician: AdmtrCodey Allergies, Adverse Reactions, Alerts No Known Allergies [...] Mouth, 2 times a day, Directions in Cameroonian. 1 tablet, twice daily., # 180 tablet, 5 Refills, Maintenance, 04/19/22 15:33:00 EST, Tablet, [id number], 165.7, cm, 01/30/21 13:27:00 EDT, Height, 95, kg, 01/30/21 13:27:00 EDT... Start Date: 04/19/22 Stop Date: 10/11/23 Status: Ordereddexamethasone 0.5 mg oral tablet 0.5 tablet = 0.25 mg, By Mouth, Daily, # 15 tablet, 11 Refills, Maintenance, 05/25/21 11:54:00 EST, [facility]/pharmacy #[id number], Partial fill upon patient request [...] 11 Refills, Maintenance, 10/21/21 15:34:00 EDT, Tablet, [facility]/pharmacy #[id number], dose change, 165.7, cm, 01/30/21 [...] skin, # 30 each, 5 Refills, Maintenance, 05/14/21 17:59:00 EST, Gel, [id number], Partial fill upon patient request if the prescription is for a schedule II opioid drug., 165.7,... 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
--- OUTSIDE RECORDS SUMMARY | 2022-01-19 10:11 | XMS_ITS | Continuity of Care Document ---
:2002 Author Organization [facility] Address [address] [place] [address]- Care Team Providers Name Role Phone Abhi Leyva MD Primary Care Physician Encounter [facility] [place] Date(s): 12/09/19 - 12/16/19 [facility] [address] [place] [phone]- [facility] Attending Physician: Zoey Servin MD Referring Physician: Abhi Leyva MD Allergies, Adverse Reactions, Alerts Substance Reaction Severity Status NKA Active Medications 18 gauge needle 18 gauge needle, See Instructions, # 6 each, Refills 3, Tot. Refills 3, Maintenance, Use to draw up testosterone, 10/13/18 13:17:20 EDT, Compound Start Date: 10/13/18 Status: [id number] g needle 19 g needle, See Instructions, # 2 each, Refills 1, Tot. Refills 1, Maintenance, use to mix Solu-Cortef, 09/01/14 15:14:59, Compound Start Date: 09/01/14 Status: Ordered3 mL syringe 3 mL syringe, See Instructions, # 2 each, Refills 11, Tot. Refills 11, Maintenance, Use to administer solu-cortef, 12/29/18 17:52:00 EDT, Compound Start Date: 12/29/18 Status: [id number] syringe with 21G 1' needle 3ml syringe [...] 60 each, 11Refills, Maintenance, 12/10/19 14:27:00 EDT, [facility]/pharmacy #[id number], 164, cm, 12/09/19 10:04:00 EDT, Height, [...] tablet, 5 Refills, Maintenance, 08/04/19 15:59:00 EDT, [facility], 165, cm, 0... Start [...] Date: 01/20/19 Stop Date: 01/15/20 Status: OrderedPen [place], 31 G x 5 mm BD Ultra [...] arms, or thighs. 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
--- OUTSIDE RECORDS SUMMARY | 2022-01-19 10:11 | XMS_ITS | Continuity of Care Document ---
:2000 Author Organization [facility] Address [address] [place] [id number]- Care Team Providers Name Role Phone Gordon WALTER, Abhi Brice Primary Care Physician Encounter [facility] [place](s): 03/30/20 - 04/29/20 [facility] [address] [place] [id number] Allergies, Adverse Reactions, Alerts Substance Reaction Severity [...] tablet, 5 Refills, Maintenance, 08/04/19 15:59:00 EDT, [facility], 165, cm, 0... Start Date: 08/04/19 Status: Ordereddesmopressin 0.1 mg oral tablet 1 tablet = 0.1 mg, By Mouth, 2 times a day, Directions in Tristanian. 1 tablet, twice daily., # 180 tablet, 5 Refills, Maintenance, 01/17/20 9:49:00 EDT, Tablet, [facility], 164, cm, 12/09/19 10:04:00 [...] 11 Refills, Maintenance, 01/17/20 9:49:00 EDT, Tablet, [facility], dose change, 164, cm, 12/09/19 [...] 3 Refills, Soft Stop, 03/28/20 11:09:00 EST, [facility]/pharmacy #[id number], 164, cm, 03/24/20 9:10:00 EST, Height, [...]
--- OUTSIDE RECORDS SUMMARY | 2022-01-19 10:11 | XMS_ITS | Continuity of Care Document ---
:2000 Author Organization [address], [address] [place] [address]- Care Team Providers Name Role Phone Gordon WALTER, Abhi Brice Primary Care Physician Encounter [facility] [place] Date(s): 05/31/20 - 06/07/[address], [address] [place], [place] [address] Attending Physician: Jake Kang MD Referring Physician: Abhi Leyva MD Allergies, [...] tablet, 5 Refills, Maintenance, 08/04/19 15:59:00 EDT, [facility], 165, cm, 0... Start Date: 08/04/19 Status: Ordereddesmopressin 0.1 mg oral tablet 1 tablet = 0.1 mg, By Mouth, 2 times a day, Directions in Swedish. 1 tablet, twice daily., # 180 tablet, 5 Refills, Maintenance, 01/17/20 9:49:00 EDT, Tablet, [facility], 164, cm, 12/09/19 10:04:00 EDT, [...] 11 Refills, Maintenance, 01/17/20 9:49:00 EDT, Tablet, [facility], dose change, 164, cm, 12/09/19 [...] 3 Refills, Soft Stop, 03/28/20 11:09:00 EST, [facility]/pharmacy #[id number], 164, cm, 03/24/20 9:10:00 EST, [...] Most recent to oldest [Reference Range]: 1 2 Height 164 cm 164 cm (05/31/20 9:06 AM) (05/16/20 8:35 AM) Weight 94.8 kg 94.8 kg (05/31/20 9:06 AM) (05/16/20 8:35 AM) Body Mass Index [18.5-24.99] 35.25 35.25 *>HHI* *>HHI* (05/31/20 9:06 AM) (05/16/20 8:35 AM) Social History Social History Type Response Smoking Status Never smoker; Tobacco user i n household: Yes entered on: 04/29/17 Sex
--- OUTSIDE RECORDS SUMMARY | 2022-01-19 10:11 | XMS_ITS | Continuity of Care Document ---
:2000 Author Organization [facility] Address [address] [place] [id number]- Care Team Providers Name Role Phone Gordon WALTER, Abhi Brice Primary Care Physician [place] [facility] [place](s): 03/20/20 - 04/19/20 [facility] [address] [place] [id number] Allergies, Adverse Reactions, Alerts Substance Reaction Severity [...] tablet, 5 Refills, Maintenance, 08/04/19 15:59:00 EDT, [facility], 165, cm, 0... Start Date: 08/04/19 Status: Ordereddesmopressin 0.1 mg oral tablet 1 tablet = 0.1 mg, By Mouth, 2 times a day, Directions in Swedish. 1 tablet, twice daily., # 180 tablet, 5 Refills, Maintenance, 01/17/20 9:49:00 EDT, Tablet, [facility], 164, cm, 12/09/19 10:04:00 EDT, [...] 11 Refills, Maintenance, 01/17/20 9:49:00 EDT, Tablet, [facility], dose change, 164, cm, 12/09/19 [...] Refills, Soft Stop, 03/28/20 11:09:00 EST, [facility]/pharmacy #[id number], 164, cm, 03/24/20 9:10:00 EST, Height, [...]
[2022-01-19 11:49] LABS: Strep A Nucleic Acid Negative (Negative)
[2022-01-19 12:00] LABS: COVID-19 Test Negative (Negative); IDNOW Serial# 16C4AD1C
[2022-01-19 12:05] VITALS: BP 110/57; PULSE 81; RESP 18; TEMP 36.7; O2SAT 99
--- NOTE | 2022-01-19 13:03 | ED.GENADULT ---
HPI - General Adult General Chief complaint: General Medical Stated complaint: sore throat stuffy nose Time Seen by Provider: 01/19/22 10:50 History of Present Illness HPI narrative: Patient complains of sore throat with pain on swallowing but no difficulty swallowing as well as runny nose for 24 hours Related Data Home Medications Medication Instructions Recorded Confirmed Cerovite Advanced Formula 1 tab PO TIDWMEAL 03/15/20 03/28/20 Genotropin 0.2 mg subcut DAILY 03/15/20 03/15/20 Solu-Cortef 100 mg IM PRN Seizures 03/15/20 desmopressin 0.1 mg tablet 0.1 mg PO BID 03/15/20 03/28/20 hydrocortisone 10 mg PO DAILY 03/15/20 03/28/20 levothyroxine 150 mcg PO DAILY 03/15/20 03/28/20 phentermine 15 mg PO DAILY 03/15/20 03/28/20 testosterone 2 pkg topical DAILY@0630 DRY SKIN 03/15/20 03/15/20 Previous Rx's Medication Instructions Recorded metoclopramide HCl 5 mg tablet 5 mg PO TIDAC #90 tabs 03/31/20 omeprazole 40 mg capsule,delayed 40 mg PO BID@0630,1630 #60 caps 03/31/20 release ondansetron HCl 4 mg tablet 4 mg PO Q8H PRN nausea and 03/31/20 (Zofran) vomiting #15 tabs sucralfate 1 gram tablet 1 g PO BIDAC #60 tabs 03/31/20 acetaminophen 500 mg tablet 1,000 mg PO QID PRN pain #30 tabs 01/19/22 ibuprofen 600 mg tablet 600 mg PO Q6H PRN pain #14 tabs 01/19/22 Allergies Allergy/AdvReac Type Severity Reaction Status Date / Time No Known Allergies Allergy Verified 04/04/20 11:29 [No Known Allergies*] Review of Systems Review of Systems: Positive for runny nose and sore throat Negative for fever no chills no dizziness no weakness no headache no neck cane no stiff neck, no difficulty swallowing no difficulty breathing no chest pain no productive cough no shortness of breath no abdominal pain no nausea vomiting or diarrhea no rash no dysuria Yes all other systems are reviewed and are negative PMFSH Past Medical History Source: nursing notes reviewed Medical History Craniopharyngioma Diabetes insipidus Hypothyroid Surgical History History of craniotomy Family History Family History Mother No problems noted. Father No problems noted. Social History Social History Household Members: Family Housing: Apartment Do you presently have visiting nurse or other home services: No Alcohol intake: never Advance Directives: Yes Advance Directives on File: Yes Advance Directives Date on File: 04/03/20 service: No Current occupational status: student Physical Exam ED Vital Signs: Vital Signs - 24 hr 01/19/22 09:55 01/19/22 12:05 Temperature 98 F 98.0 F Pulse Rate 75 81 Respiratory Rate 18 18 Blood Pressure 118/74 110/57 L Pulse Oximetry 98 99 Oxygen Delivery Method Room Air Room Air BMI result Body Mass Index 36.0 General appearance no distress Eyes no redness no discharge The ears normal no tympanic membrane or canal abnormalities The nose no sinus tenderness The pharynx no redness swelling or exudate membranes are moist voice is normal uvula midline Neck is supple Chest clear to auscultation bilateral Heart no murmur Abdomen soft nontender Extremities for range of motion x4 Skin no rash Course Course Course Narrative: Well-appearing patient with a sore throat no runny nose with negative COVID and strep test is discharged home Medical Decision Making Lab Data Labs: Lab Results 01/19/22 01/19/22 Range/Units 11:17 11:17 COVID-19 (ALEX) Negative (Negative) COVID-19 Clin Com See Note S. pyogenes GrpA GARTH Negative (Negative) Discharge Plan Discharge Clinical Impression: Acute viral syndrome Patient Disposition: Home, Self-Care Additional Instructions: Testing for both COVID and strep throat were negative Physical exam was normal with no worrisome findings We gave 1 dose of steroid in the emergency room which may reduce inflammation and discomfort in the throat Otherwise use Motrin and Tylenol as needed Follow with photograph developer next week if not better Return any time any worse condition or any concerns Prescriptions: New acetaminophen 500 mg tablet 1,000 mg PO QID PRN (Reason: pain) Qty: 30 0RF ibuprofen 600 mg tablet 600 mg PO Q6H PRN (Reason: pain) Qty: 14 0RF No Action metoclopramide HCl 5 mg Tablet 5 mg PO TIDAC Qty: 90 0RF sucralfate 1 gram Tablet 1 g PO BIDAC Qty: 60 0RF omeprazole 40 mg Capsule,Delayed Release(Dr/Ec) 40 mg PO BID@0630,1630 Qty: 60 0RF ondansetron HCl [Zofran] 4 mg tablet 4 mg PO Q8H PRN (Reason: nausea and vomiting) Qty: 15 0RF hydrocortisone 10 mg PO DAILY Solu-Cortef 100 mg IM PRN (Reason: Seizures) Rx Instructions: this medication was filled on 03/18/2018 last and never used. levothyroxine 150 mcg PO DAILY desmopressin 0.1 mg Tablet 0.1 mg PO BID Genotropin 12 MG 0.2 mg subcut DAILY phentermine 15 mg PO DAILY testosterone gel 2 pkg topical DAILY@0630 Rx Instructions: 1.62% GEL PACKETS 2 PACKETS DAILY IN AM APPLY TO DRY SKIN Cerovite Advanced Formula 1 tab PO TIDWMEAL Stand Alone Forms: Work/School Release Interventions: ED Discharge Assessment Last Done: 01/19/22 13:41 Discharge Date/Time: 01/19/22 13:41
[2022-01-19] MEDS: Ibuprofen 600 MG TABLET PO (13:37)
[2022-01-19] MEDS: dexAMETHasone 2 MG TABLET 10 MG PO (13:37)
== END 2022-01-19 13:41 | disposition home or self-care (01) ==
PROVIDERS: Physician Assistant Medical; Emergency Provider Emergency Medicine; PCP Nurse Practitioner Primary Care
DX: B34.9 Viral infection, unspecified (principal); J02.9 Acute pharyngitis, unspecified; Z20.822 Contact with and (suspected) exposure to COVID-19; E11.9 Type 2 diabetes mellitus without complications
CPT/HCPCS: 87635; 87651; 99283; J8540

== ENCOUNTER 2022-05-15 16:16 | Outpatient (REF) | payer MEDICAID, SELFPAY ==
--- NOTE | ~2022-05-15 | XR_ITS ---
EXAMINATION: AP BILATERAL KNEE STANDING, 2 VIEWS EACH KNEE CLINICAL INFORMATION: Pain. COMPARISON: None. TECHNIQUE: AP bilateral knee standing. Two views each knee. FINDINGS: AP BILATERAL KNEE STANDING: The left knee is slightly higher in position compared to the right knee, which may be resulting in uneven leg length. The right tibial growth plate is fused. Bilateral fibula and left tibial growth plates are unfused. The distal femoral growth plates are unfused. No fracture or bony abnormalities. The soft tissues are normal. LEFT KNEE: The distal femoral and proximal tibial and fibular growth plates are visualized and are unremarkable. No visible fracture or loose body seen. No joint effusion. RIGHT KNEE: Fused proximal tibial growth plate. Distal femoral and proximal fibular growth plates are patent. No visible acute fracture, dislocation or joint effusion seen. XR/XR knee LT 2V IMPRESSION: 1. Fused right tibial growth plate resulting in uneven lower extremity limb length. 2. No visible acute fracture or dislocation seen.
--- NOTE | ~2022-05-15 | XR_ITS ---
EXAMINATION: AP BILATERAL KNEE STANDING, 2 VIEWS EACH KNEE CLINICAL INFORMATION: Pain. COMPARISON: None. TECHNIQUE: AP bilateral knee standing. Two views each knee. FINDINGS: AP BILATERAL KNEE STANDING: The left knee is slightly higher in position compared to the right knee, which may be resulting in uneven leg length. The right tibial growth plate is fused. Bilateral fibula and left tibial growth plates are unfused. The distal femoral growth plates are unfused. No fracture or bony abnormalities. The soft tissues are normal. LEFT KNEE: The distal femoral and proximal tibial and fibular growth plates are visualized and are unremarkable. No visible fracture or loose body seen. No joint effusion. RIGHT KNEE: Fused proximal tibial growth plate. Distal femoral and proximal fibular growth plates are patent. No visible acute fracture, dislocation or joint effusion seen. XR/XR knee standing BI IMPRESSION: 1. Fused right tibial growth plate resulting in uneven lower extremity limb length. 2. No visible acute fracture or dislocation seen.
--- NOTE | ~2022-05-15 | XR_ITS ---
EXAMINATION: AP BILATERAL KNEE STANDING, 2 VIEWS EACH KNEE CLINICAL INFORMATION: Pain. COMPARISON: None. TECHNIQUE: AP bilateral knee standing. Two views each knee. FINDINGS: AP BILATERAL KNEE STANDING: The left knee is slightly higher in position compared to the right knee, which may be resulting in uneven leg length. The right tibial growth plate is fused. Bilateral fibula and left tibial growth plates are unfused. The distal femoral growth plates are unfused. No fracture or bony abnormalities. The soft tissues are normal. LEFT KNEE: The distal femoral and proximal tibial and fibular growth plates are visualized and are unremarkable. No visible fracture or loose body seen. No joint effusion. RIGHT KNEE: Fused proximal tibial growth plate. Distal femoral and proximal fibular growth plates are patent. No visible acute fracture, dislocation or joint effusion seen. XR/XR knee RT 2V IMPRESSION: 1. Fused right tibial growth plate resulting in uneven lower extremity limb length. 2. No visible acute fracture or dislocation seen.
== END 2022-05-15 16:17 | disposition home or self-care (01) ==
LOC: HO.HOSX 16:16
PROVIDERS: Visit Provider Physician Assistant
DX: M76.51 Patellar tendinitis, right knee (principal); M25.562 Pain in left knee
CPT/HCPCS: 73560; 73565; 99202

== ENCOUNTER 2022-05-27 16:09 | Outpatient (REF) | payer MEDICAID, SELFPAY ==
--- NOTE | ~2022-05-27 | XR_ITS ---
EXAMINATION: XR FOOT, RIGHT CLINICAL INFORMATION: Right foot pain COMPARISON: None TECHNIQUE: AP, lateral, and oblique views of the right foot. FINDINGS: No fracture or dislocation. Appropriate alignment. Joint spaces are maintained. No osseous erosion. Diffuse soft tissue swelling. No ankle joint effusion. XR/XR foot RT min 3V IMPRESSION: Diffuse soft tissue swelling. No acute osseous abnormality.
== END 2022-05-27 16:10 | disposition home or self-care (01) ==
LOC: HO.XRAY 16:09
PROVIDERS: Absent Provider Nurse Practitioner Primary Care; PCP Nurse Practitioner Primary Care; Visit Provider General Practice
DX: M79.671 Pain in right foot (principal)
CPT/HCPCS: 73630

== ENCOUNTER 2022-09-10 17:00 | Outpatient (RCR) | payer MEDICAID, SELFPAY ==
--- NOTE | 2022-06-19 16:50 | MHC.PT.EP ---
[facility] Office [place] [facility] [place] Office [address] [place] [address] [phone] F: [phone] F: [phone] F: [phone] F: [phone] Physical Therapy Plan of Care Date of Evaluation: Date of Surgery: n/a Diagnosis: R knee patellar tendinitis Assessment: Patient is a 22 year old male presenting to PT with complaints of pain in his R knee. Pt reports onset of pain began 03/27/2022 due to falling after jumping. He presents today with impairments in pain, knee ROM, quad strength, hip strength, gait mechanics. 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 Clinical presentation today is most consistent with signs and sx associated with R knee injury s/p fall and pt will benefit from skilled PT 2x week x 4 weeks to address the following problems and impairments noted upon evaluation: pain, knee ROM, quad strength, hip strength, gait mechanics. These problems limit the patient with the following functional activities: ADLs, ambulating, stair negotiation. The prescribed treatment plan of care is medically necessary. Co-morbidities of diabetes insipidus were identified and taken into considerations of plan of care. Pt was educated on HEP, role of PT, prognosis, POC. Frequency and Duration: The patient will be seen 2 x week x 4 weeks Short Term Goals: Pt will demonstrate improved R knee AROM to 0 of ext and 125 of flexion in 2 weeks. Pt will demonstrate ability to perform SLR with good quad control in 2 weeks. Pt will demonstrate improved hip MMT strength by 1/3 grade in 2 weeks. Custodial Goals: Pt will demonstrate improved LEFI score by 9 points in 4 weeks for improved functional mobility. Pt will demonstrate ability to ambulate with normal mechanics in 4 weeks. Pt will demonstrate ability to negotiate stairs with min to no pain in 4 weeks. Treatment Plan: Modalities to reduce pain, spasms and effusion. Manual therapy to restore motion and function. Therapeutic exercise to improve strength and flexibility. Neuromuscular re-education for posture and balance. Therapeutic activities to return to functional activities of daily living. Electronically signed by: Mercedes Abreu, PT, DPT, ATC Please sign and return to therapist. Thank you for your referral.
--- NOTE | 2022-10-18 08:46 | MHC.PT.DC ---
[facility] [place] Office [place] Office [place] Office [address] [place] [address] [phone] F: [phone] F: [phone] F: [phone] F: [phone] Physical Therapy Discharge Report Diagnosis: R knee patellar tendinitis Date of Surgery: n/a Date of Evaluation: 06/19/22 Date of Discharge: 10/18/22 Treatments to Date: 8 Cancellations to Date: 4 No Shows to Date: 1 Discharge Status: Visit Non-compliance Discharge Summary: Pt has not attended skilled PT in >30 days. Pt to be d/c at this time and should follow up with MD if limitations continue. Electronically signed by: Mercedes Abreu, PT, DPT, ATC Please sign and return to therapist. Thank you for your referral.
== END 2022-10-18 08:46 | disposition home or self-care (01) ==
LOC: HO.PTCHIC 17:00
PROVIDERS: PCP Nurse Practitioner Primary Care; Visit Provider Physician Assistant
DX: M76.51 Patellar tendinitis, right knee (principal)
CPT/HCPCS: 97110; 97140; 97161

== ENCOUNTER 2022-09-13 06:18 | Outpatient (REF) | payer MEDICAID, SELFPAY ==
--- NOTE | ~2022-09-13 | XR_ITS ---
EXAMINATION: XR ANKLE, RIGHT CLINICAL INFORMATION: Pain COMPARISON: None available. TECHNIQUE: AP, lateral, and mortise views of the right ankle. FINDINGS: AP view is limited due to patient positioning. Bone alignment is normal. No fracture or dislocation. The ankle mortise is normal. Soft tissues are normal. XR/XR ankle RT min 3V IMPRESSION: Unremarkable exam.
== END 2022-09-13 06:19 | disposition home or self-care (01) ==
LOC: HO.HOSX 06:18
PROVIDERS: Visit Provider Physician Assistant
DX: M76.51 Patellar tendinitis, right knee (principal); S93.401A Sprain of unspecified ligament of right ankle, initial encounter
CPT/HCPCS: 73610; 99212

== ENCOUNTER 2022-10-25 12:56 | Outpatient (REF) | payer MEDICAID, SELFPAY ==
--- NOTE | ~2022-10-25 | MR_ITS ---
EXAMINATION: MR KNEE WITHOUT CONTRAST, RIGHT CLINICAL INFORMATION: Right knee pain. Limited range of motion. Osteoarthritis. COMPARISON: Right knee radiographs 05/15/2022. TECHNIQUE: MRI of the knee without contrast was performed using routine sequences on a high-field scanner. FINDINGS: MENISCI: Medial Meniscus: Mild hemorrhage and blunting of the medially extruded meniscal body, which could represent minimal inner margin tearing. No additional medial meniscal tear. Lateral Meniscus: Intact LIGAMENTS: Cruciate: Intact Collateral: Intact EXTENSOR MECHANISM: Intact quadriceps and patellar tendons. No patella candace. Borderline elevated TT TG distance measuring 1.6 cm. ARTICULAR CARTILAGE/BONE: Patellofemoral Compartment: Intact articular cartilage. Medial Compartment: Intact articular cartilage. Lateral Compartment: Intact articular cartilage. JOINT FLUID AND BURSAE: Trace joint effusion. MR/MR knee RT wo con IMPRESSION: Mild hemorrhage and blunting of the medially extruded medial meniscal body, which could represent minimal margin tearing. No additional meniscal tear. Borderline elevated TT TG distance measuring 1.6 cm. No patella candace. Trace joint effusion.
== END 2022-10-25 12:57 | disposition home or self-care (01) ==
LOC: HO.MRI 12:56
PROVIDERS: PCP Nurse Practitioner Primary Care; Visit Provider Physician Assistant
DX: M17.11 Unilateral primary osteoarthritis, right knee (principal)
CPT/HCPCS: 73721

== ENCOUNTER 2022-11-07 13:22 | Outpatient (REF) | payer MEDICAID, SELFPAY ==
[2022-11-07 17:02] LABS: Cholesterol 191 mg/dL; HDL Cholesterol 24 mg/dL; Triglycerides 410 mg/dL
[2022-11-07 19:10] LABS: Free T4 (Free Thyroxine) 0.86 ng/dL (0.71-1.85)
[2022-11-10 00:44] LABS: TS Negative Control Passed; TS Panel A 2; TS Panel B 0; TS Positive Control Passed; TSpotTB Negative (Negative)
[2022-11-15 14:09] LABS: Testosterone, Total <1 ng/dL (250-1100)
== END 2022-11-07 13:23 | disposition home or self-care (01) ==
LOC: HO.HHCL 13:22
PROVIDERS: Visit Provider Nurse Practitioner Primary Care
DX: Z11.1 Encounter for screening for respiratory tuberculosis (principal); E23.0 Hypopituitarism
CPT/HCPCS: 36415; 80061; 84402; 84403; 84439; 84443; 86481

== ENCOUNTER 2022-11-27 07:43 | Emergency (ER) | payer MEDICAID, SELFPAY ==
[2022-11-27 08:04] VITALS: BP 129/76; PULSE 75; RESP 18; TEMP 36.7; O2SAT 99; BMI 37.4
--- NOTE | 2022-11-27 08:30 | ED_ITS ---
HPI - General Adult General Chief complaint: General Medical Stated complaint: Body aches/Fever Time Seen by Provider: 11/27/22 08:15 Source: patient, RN notes reviewed and old records reviewed Mode of arrival: ambulatory History of Present Illness HPI narrative: 22-year-old male with past medical history of esophagitis/gastritis, patellar tendinitis of the right knee, presenting to the ED complaining of intermittent low-grade fevers, T-max 100.2 degrees, nausea, vomiting, diarrhea, generalized fatigue/weakness and malaise x 2 weeks. Admits was seen at walk-in clinic 2x last week, tested negative for COVID-19 and strep, recommended outpatient stool studies which patient has not yet performed. Also reports acute on chronic right knee pain from old injury, had knee MRI on 10/25 which patient did not know results. Denies more recent injury/trauma or fall, difficulty/inability to swallow, drainage from ear, hearing loss, cough, CP/SOB, abdominal pain at present, dysuria/hematuria Onset (ago): week(s) Related Data Home Medications Medication Instructions Recorded Confirmed Cerovite Advanced Formula 1 tab PO TIDWMEAL 03/15/20 03/28/20 Genotropin 0.2 mg subcut DAILY 03/15/20 03/15/20 Solu-Cortef 100 mg IM PRN Seizures 03/15/20 desmopressin 0.1 mg tablet 0.1 mg PO BID 03/15/20 03/28/20 levothyroxine 150 mcg PO DAILY 03/15/20 03/28/20 dexamethasone 0.5 mg tablet 0.25 mg PO QAM 05/15/22 levothyroxine 150 mcg tablet 150 mcg PO QAM 05/15/22 hydrocortisone 5 mg tablet 20 mg PO Q6H PRN fever 09/13/22 hydrocortisone sod succ (PF) 100 mg IM 09/13/22 mg/2 mL solution for injection (Solu-Cortef Act-O-Vial (PF)) testosterone cypionate 200 mg/mL mg subcut 09/13/22 intramuscular oil Previous Rx's Medication Instructions Recorded acetaminophen 500 mg tablet 1,000 mg PO QID PRN pain #30 tabs 01/19/22 ibuprofen 600 mg tablet 600 mg PO Q6H PRN pain #14 tabs 01/19/22 Allergies Allergy/AdvReac Type Severity Reaction Status Date / Time No Known Allergies Allergy Verified 11/27/22 08:08 [No Known Allergies*] Review of Systems Review of Systems: Constitutional: +Fever, No Chills, No Night Sweats, + Fatigue, + Malaise ENT/Mouth: No Ear Pain, No Nasal Congestion, No Sinus Pain, No Hoarseness, + sore throat, No Rhinorrhea, No Swallowing Difficulty Eyes: No Eye Pain, No Swelling, No Redness, No Vision Changes Cardiovascular: No Chest Pain, No SOB, No Edema, No Palpitations Respiratory: No Cough, No Sputum, No Dyspnea Gastrointestinal: + Nausea, + Vomiting, + Diarrhea, No Constipation, No Abdominal pain Genitourinary: No Dysuria, No Urinary Frequency, No Hematuria, No Urinary Incontinence/retention, No Flank Pain Musculoskeletal: No joint pain, No Myalgias, No Joint Swelling Skin: No Skin Lesions, No rash Neuro: No Weakness, No Dizziness, No Headache Yes all other systems are reviewed and are negative Constitutional: Constitutional: Reports as per [facility] Past Medical History Attestation statement: The following information was validated with the patient. Source: old records reviewed Medical History Craniopharyngioma Diabetes insipidus Hypothyroid Surgical History History of craniotomy Family History Family History Mother No problems noted. Father No problems noted. Social History Social History Household Members: Family Housing: Apartment Do you presently have visiting nurse or other home services: No Alcohol intake: never Patient Tobacco Use Status: Never used Tobacco Advance Directives: Yes Advance Directives on File: Yes Advance Directives Date on File: 04/03/20 service: No Current occupational status: student Physical Exam ED Vital Signs: Vital Signs - 24 hr 11/27/22 08:04 11/27/22 10:32 Temperature 98.1 F 98.1 F Pulse Rate 75 64 Respiratory Rate 18 16 Blood Pressure 129/76 117/70 Pulse Oximetry 99 100 Oxygen Delivery Method Room Air Room Air BMI result Body Mass Index 37.4 Const General: cooperative, healthy appearing, no acute distress, alert and awake Orientation/consciousness: patient oriented x3 Limitations: no limitations HENMT Head: Yes normal to inspection and Yes atraumatic Ears: hearing grossly normal bilaterally, external ears normal and mastoids normal General nose exam: Normal external nose present Face and sinus: Yes normal facial exam Throat: Yes uvula midline, Yes abnormal tonsil (mildly swollen, no exudates), No peritonsillar mass, Yes posterior oropharynx abnormal (erythematous) and No uvular edema Eyes General: appearance normal, both eyes and all related structures EOM: EOMs intact bilaterally Neck Neck: Yes normal visual inspection, Yes no meningeal signs and No anterior neck swelling Resp Effort & Inspection: normal respiratory effort and no respiratory distress Auscultation: clear to auscultation bilaterally, no crackles and no wheezes Cardio Rate: regular rate Heart sounds: S1 normal heart sound present and S2 normal heart sound present GI Inspection: Yes normal to inspection Palpation (GI): Soft to palpation, nontender, no guarding and not rigid Skin Rashes: no rashes Wounds: no wounds Neuro General: patient oriented x3, tone normal and no meningeal signs Gait exam (Neuro): Normal gait present Extrem Other: Right knee mildly swelling, nontender, full range of motion intact. Neurovascular intact distally. No erythema/ecchymosis or crepitus Course Course Course Narrative: -1044-labs reassuring. AST/ALT chronically elevated. UA negative -monos brain negative -COVID-19 positive Results discussed with patient including worrisome signs and symptoms and strict return precautions, and when to return to the emergency department. They verbalized understanding and feel safe for discharge at this time. Medical Decision Making Medical Decision Making MDM Narrative: 22-year-old male with past medical history of esophagitis/gastritis, patellar tendinitis of the right knee, presenting to the ED complaining of intermittent low-grade fevers, T-max 100.2 degrees, nausea, vomiting, diarrhea, generalized fatigue/weakness and malaise x 2 weeks. Also reports acute on chronic right knee pain from old injury. On exam vital signs stable, NAD, nontoxic appearing, exam nonfocal, abdomen soft/nontender, mild posterior or pharyngeal erythema with tonsillar swelling, no exudate, uvula midline. Concern for a viral illness vs pharyngitis or mononucleosis vs metabolic abnormalities. Low suspicion for otitis media/externa, DIRECTOR PAYER/retropharyngeal abscess, intra-abdominal pathology including appendicitis/diverticulitis. Patient had knee MRI on 10/25 which shows meniscal tear, this was discussed with patient, he was supplied with MRI report and recommended follow-up with Orthopedics Plan: Viral testing, labs, UA, mono spot Please refer to course for remaining clinical decision making, interpretation of labs/imaging results, and discussions with consultants and/or family members. Differential Diagnosis Differential Diagnoses: The differential diagnosis associated with the presentation includes As above Admission/Observation Consideration of admission/observation: Escalation of care including admission/observation considered Lab Data MDM Lab Attestation statement: I reviewed the patient's lab results. 11/27/22 09:05 11/27/22 09:05 Labs: Lab Results 11/27/22 11/27/22 11/27/22 Range/Units 08:34 08:34 09:05 WBC (4.8-10.8) X10*3/uL RBC (4.60-5.80) X10*6/uL Hgb (14.0-18.0) g/dl Hct (42.0-52.0) % MCV (80.0-98.0) fL MCH (27.0-33.0) pg MCHC (31.0-36.0) g/dl RDW (11.0-16.0) % Plt Count (160-400) X10*3/uL MPV (9.4-12.4) fL Immature Gran % (Auto) (0.0-0.4) % Neut % (Auto) (45-73) % Lymph % (Auto) (20-40) % [place] % (Auto) (2-11) % Eos % (Auto) (0-4) % Baso % (Auto) (0-2) % Lymph # (Auto) (1.2-4.9) X10*3/uL [place] # (Auto) (0.1-1.2) X10*3/uL Eos # (Auto) (0.0-0.4) X10*3/uL Baso # (Auto) (0.0-0.2) X10*3/uL Abs Immat Gran (auto) (0.00-0.03) X10*3/uL Absolute Neuts (auto) (2.0-8.3) x10*3/uL Absolute Nucleated RBC (0.0-0.012) X10*3/uL Nucleated RBC % (auto) (0.0-0.2) /100WBC Sodium (135-145) mmol/L Potassium (3.3-5.1) mmol/L Chloride (96-108) mmol/L Carbon Dioxide (22-29) mmol/L Anion Gap (12-20) BUN (9-16) mg/dL Creatinine (0.5-1.4) mg/dL Estim Creat Clear Calc Estimated GFR Random Glucose (60-115) mg/dL Calcium (8.4-10.2) mg/dL Magnesium (1.6-2.6) mg/dL Total Bilirubin (0.0-1.0) mg/dL Direct Bilirubin (0.0-0.5) mg/dL AST (5-37) U/L ALT (0-40) U/L Alkaline Phosphatase (39-117) U/L Total Protein (6.5-8.0) g/dL Albumin (3.5-5.0) g/dL Urine Color Urine Appearance Urine pH (5.0-9.0) Ur Specific [place] (1.005-1.025) Urine Protein (Neg-Trace) mg/dL Urine Glucose (UA) (Negative) mg/dL Urine Ketones (Negative) mg/dL Urine Blood (Negative) Urine Nitrite (Negative) Ur Leukocyte Esterase (Negative) Monoscreen Negative (Negative) Influenza Type A (PCR) NEGATIVE (Negative) Influenza Type B (PCR) NEGATIVE (Negative) RSV RNA Qual (PCR) NEGATIVE (Negative) SARS-CoV-2 RNA (RT-PCR) POSITIVE A (Negative) S. pyogenes GrpA GARTH Negative (Negative) 11/27/22 11/27/22 11/27/22 Range/Units 09:05 09:05 10:09 WBC 7.2 (4.8-10.8) X10*3/uL RBC 4.52 L (4.60-5.80) X10*6/uL Hgb 13.7 L (14.0-18.0) g/dl Hct 38.5 L (42.0-52.0) % MCV 85.2 (80.0-98.0) fL MCH 30.3 (27.0-33.0) pg MCHC 35.6 (31.0-36.0) g/dl RDW 12.6 (11.0-16.0) % Plt Count 248 (160-400) X10*3/uL MPV 10.4 (9.4-12.4) fL Immature Gran % (Auto) 0.4 (0.0-0.4) % Neut % (Auto) 33.5 L (45-73) % Lymph % (Auto) 56.1 H (20-40) % [place] % (Auto) 5.4 (2-11) % Eos % (Auto) 4.3 H (0-4) % Baso % (Auto) 0.3 (0-2) % Lymph # (Auto) 4.0 (1.2-4.9) X10*3/uL [place] # (Auto) 0.4 (0.1-1.2) X10*3/uL Eos # (Auto) 0.3 (0.0-0.4) X10*3/uL Baso # (Auto) 0.0 (0.0-0.2) X10*3/uL Abs Immat Gran (auto) 0.03 (0.00-0.03) X10*3/uL Absolute Neuts (auto) 2.4 (2.0-8.3) x10*3/uL Absolute Nucleated RBC 0.000 (0.0-0.012) X10*3/uL Nucleated RBC % (auto) 0.0 (0.0-0.2) /100WBC Sodium 143 (135-145) mmol/L Potassium 3.5 (3.3-5.1) mmol/L Chloride 108 (96-108) mmol/L Carbon Dioxide 24 (22-29) mmol/L Anion Gap 15 (12-20) BUN 5 L (9-16) mg/dL Creatinine 0.69 (0.5-1.4) mg/dL Estim Creat Clear Calc 187.5 Estimated GFR > 60 Random Glucose 98 (60-115) mg/dL Calcium 10.1 D (8.4-10.2) mg/dL Magnesium 1.8 (1.6-2.6) mg/dL Total Bilirubin 1.0 (0.0-1.0) mg/dL Direct Bilirubin 0.3 (0.0-0.5) mg/dL AST 120 H (5-37) U/L ALT 79 H (0-40) U/L Alkaline Phosphatase 83 (39-117) U/L Total Protein 7.7 (6.5-8.0) g/dL Albumin 4.1 (3.5-5.0) g/dL Urine Color Yellow Urine Appearance Clear Urine pH 5.5 (5.0-9.0) Ur Specific [place] <= 1.005 (1.005-1.025) Urine Protein Negative (Neg-Trace) mg/dL Urine Glucose (UA) Negative (Negative) mg/dL Urine Ketones Negative (Negative) mg/dL Urine Blood Negative (Negative) Urine Nitrite Negative (Negative) Ur Leukocyte Esterase Negative (Negative) Monoscreen (Negative) Influenza Type A (PCR) (Negative) Influenza Type B (PCR) (Negative) RSV RNA Qual (PCR) (Negative) SARS-CoV-2 RNA (RT-PCR) (Negative) S. pyogenes GrpA GARTH (Negative) Radiology Impression Discussion of test interpretation with radiology: I have reviewed the radiologist's reading. External Record Review External record reviewed: Inpatient record, Office record, Outpatient record, Prior outpatient labs, Prior outpatient radiology, Primary care record and Outside ED record Tests considered The following testing was considered but not selected: As above Prescription Management I considered prescription management with: Pain Medication, Antiviral and Antibiotic Discharge Plan Discharge Clinical Impression: COVID-19 Patient Disposition: Home, Self-Care Instructions: COVID-19 (Coronavirus Disease 2019) (ED) Additional Instructions: At this time you will be okay for discharge. Please self isolate for 5 days. Do not expose yourself to others. You may not go to work or school. Please continue to follow cold instructions and wash your hands frequently. You may take Tylenol / Motrin as directed on the bottle for pain or fever. If you have constant or persistent shortness of breath, fever unresolved with medications, chest pain, or your unable to eat or drink please return to the ED CDC Guidelines for home isolation: - Stay away from others - WEAR A MASK if you are sick AND STAY HOME - Cover your mouth and nose with a tissue when you cough or sneeze. Dispose of tissues in a lined trash can and wash your hands immediately with soap and water for at least 20 seconds. If soap and water are not available, clean hands with alcohol-based hand appraiser oil and water that contains at least 60% alcohol. - Clean your hands often with soap and water for at least 20 seconds - Avoid touching your eyes, nose and mouth with unwashed hands - Do not share dishes, drinking glasses, cups, eating utensils, towels, or bedding with other people in your home. After using these items, wash them thoroughly with soap and water or put in the plate preparer. - Clean high-touch surfaces in your isolation area ( sick room and bathroom) every day; let a caregiver clean and disinfect high-touch surfaces in other areas of the home. Clean the area or item with soap and water or another detergent if it is dirty. Then, use a household disinfectant. - Limit contact with pets and animals: If you must care for a pet, wash your hands before and after interacting with them) Prescriptions: No Action Solu-Cortef 100 mg IM PRN (Reason: Seizures) Rx Instructions: this medication was filled on 03/18/2018 last and never used. levothyroxine 150 mcg PO DAILY desmopressin 0.1 mg Tablet 0.1 mg PO BID Genotropin 12 MG 0.2 mg subcut DAILY Cerovite Advanced Formula 1 tab PO TIDWMEAL acetaminophen 500 mg tablet 1,000 mg PO QID PRN (Reason: pain) Qty: 30 0RF ibuprofen 600 mg tablet 600 mg PO Q6H PRN (Reason: pain) Qty: 14 0RF dexamethasone 0.5 mg tablet 0.25 mg PO QAM levothyroxine 150 mcg tablet 150 mcg PO QAM Solu-Cortef Act-O-Vial (PF) 100 mg/2 mL recon soln IM testosterone cypionate 200 mg/mL oil subcut hydrocortisone 5 mg tablet 20 mg PO Q6H PRN (Reason: fever) Referrals: Rut Mackay [employer] [Primary Care Provider] - Stand Alone Forms: Work/School Release Interventions: ED Discharge Assessment Last Done: 11/27/22 11:19 Discharge Date/Time: 11/27/22 11:20
[2022-11-27 08:46] LABS: IDNOW Serial# 08D9AD1C; Strep A Nucleic Acid Negative (Negative)
[2022-11-27 09:09] LABS: MANUAL DIFF FLAG NO
[2022-11-27 09:17] LABS: Basophils Percent Auto 0.3 % (0-2); Eosinophils Absolute Auto 0.3 X10*3/uL (0.0-0.4); Eosinophils Percent Auto 4.3 % (0-4); Hematocrit 38.5 % (42.0-52.0); Hemoglobin 13.7 g/dl (14.0-18.0); Imm Gran Abs Auto 0.03 X10*3/uL (0.00-0.03); Imm Gran Pct Auto 0.4 % (0.0-0.4); Lymphocytes Percent Auto 56.1 % (20-40); Mean Corpuscular HGB Conc 35.6 g/dl (31.0-36.0); Mean Corpuscular Hemoglobin 30.3 pg (27.0-33.0); Mean Corpuscular Volume 85.2 fL (80.0-98.0); Mean Platelet Volume 10.4 fL (9.4-12.4); Monocytes Absolute Auto 0.4 X10*3/uL (0.1-1.2); Monocytes Percent Auto 5.4 % (2-11); Neutrophils Absolute Auto 2.4 x10*3/uL (2.0-8.3); Neutrophils Percent Auto 33.5 % (45-73); Platelet Count 248 X10*3/uL (160-400); Red Blood Count 4.52 X10*6/uL (4.60-5.80); Red Cell Distribution Width 12.6 % (11.0-16.0); White Blood Count 7.2 X10*3/uL (4.8-10.8)
[2022-11-27 09:33] LABS: Influenza A PCR NEGATIVE (Negative); Influenza B PCR NEGATIVE (Negative); Resp Syncy Virus RNA Qual PCR NEGATIVE (Negative); SARS COV2 PCR INHOUSE POSITIVE (Negative)
[2022-11-27 09:46] LABS: Alanine Aminotransferase 79 U/L (0-40); Albumin Level 4.1 g/dL (3.5-5.0); Alkaline Phosphatase 83 U/L (39-117); Anion Gap 15 (12-20); Aspartate Amino Transferase 120 U/L (5-37); Bilirubin Direct 0.3 mg/dL (0.0-0.5); Blood Urea Nitrogen 5 mg/dL (9-16); Calcium 10.1 mg/dL (8.4-10.2); Carbon Dioxide 24 mmol/L (22-29); Chloride 108 mmol/L (96-108); Creatinine Clr Calc Pharmacy 187.5; Estimated Glomerular Filt Rate > 60; Glucose Random 98 mg/dL (60-115); Magnesium 1.8 mg/dL (1.6-2.6); Potassium 3.5 mmol/L (3.3-5.1); Sodium 143 mmol/L (135-145); Total Protein 7.7 g/dL (6.5-8.0)
[2022-11-27 10:01] LABS: Monotest Negative (Negative)
[2022-11-27 10:18] LABS: Appearance Urine Clear; Color Urine Yellow; Glucose Urine UA Negative (Negative); Leukocyte Esterase Urine Negative (Negative); Nitrite Urine Negative (Negative); PH 5.5 (5.0-9.0); Specific Gravity - Urine <= 1.005 (1.005-1.025); Urine Blood Negative (Negative); Urine Ketones Negative (Negative); Urine Protein Negative (Neg-Trace)
[2022-11-27 10:32] VITALS: BP 117/70; PULSE 64; RESP 16; TEMP 36.7; O2SAT 100
== END 2022-11-27 11:20 | disposition home or self-care (01) ==
PROVIDERS: Physician Assistant; Emergency Provider Student in an Organized Health Care Education/Training Program; PCP Nurse Practitioner Primary Care
DX: U07.1 COVID-19 (principal); M79.10 Myalgia, unspecified site; R50.9 Fever, unspecified; Z79.899 Other long term (current) drug therapy
CPT/HCPCS: 0241U; 36415; 80048; 80076; 81003; 83735; 85025; 86308; 87651; 99283

== ENCOUNTER 2023-01-06 15:23 | Outpatient (AMB) | payer MEDICAID, SELFPAY ==
[2023-01-06 15:32] VITALS: BMI 37.3
--- NOTE | 2023-01-06 15:32 | MHC.OFFVIS ---
Intake Vital Signs 01/06/23 15:32 Height 5 ft 5 in Weight 224 lb BMI 37.3 Intake Visit Reasons: OV- MRI follow up Intake Note: David 22 yr old male presents today with his mother for his MRI review of his right knee. Allergies No Known Allergies [No Known Allergies*] Allergy (Verified 01/06/23 15:33) HPI OV- MRI follow up HPI Details 22-year-old male who returns to the office today for an MRI review of his right knee. [facility] Medical History Craniopharyngioma Diabetes insipidus Hypothyroid Surgical History History of craniotomy Family History Mother No problems noted. Father No problems noted. Social History Household Members: Family Housing: Apartment Do you presently have visiting nurse or other home services: No Alcohol intake: never Patient Tobacco Use Status: Never used Tobacco Advance Directives Date on File: 04/03/20 service: No Current occupational status: student Review of Systems Const All systems reviewed & are unremarkable except as noted in HPI and below Physical Exam Vital Signs: BMI result Body Mass Index 37.3 Extrem Other: Right knee: Skin intact, no erythema or joint effusion. No tenderness to palpation along the medial and lateral joint line. He does have some lateral retropatellar tenderness. Full ROM with crepitus. Negative Magdalena?s. No ligamentous laxity. NVI. Results Reviewed Results Reviewed: MR knee RT wo con 10/25/22 IMPRESSION: Mild hemorrhage and blunting of the medially extruded medial meniscal body, which could represent minimal margin tearing. No additional meniscal tear. Borderline elevated TT TG distance measuring 1.6 cm. No patella candace. Trace joint effusion. Assessment & Plan Assessment & Plan (1) Patellar tendinitis of right knee: Code(s): M76.51 - Patellar tendinitis, right knee Plan MRI results were reviewed with the patient today. We discussed options which include a knee brace for stability of patella along with physical therapy exercises he was given to work at home. He will continue to increase activity as tolerated and if symptoms arise or he has limitations with activities, he will contact the office, otherwise follow-up as needed. Patient Instructions: Scribed for Jamar Hall PA-C, by Dean Anton medical claims assistant, on 01/06/2023 at 3:30 PM EST. Brooklynn, Jamar Hall PA-C, have personally reviewed and agree with the information entered by the scribe. Coding Level of Care Code Est Pt Level 3 (83940) Diagnoses Patellar tendinitis of right knee M76.51
== END 2023-01-06 16:05 | disposition home or self-care (01) ==
PROVIDERS: PCP Nurse Practitioner Primary Care; Visit Provider Physician Assistant
DX: M76.51 Patellar tendinitis, right knee (principal)
CPT/HCPCS: 99213

== ENCOUNTER → 2023-01-06 15:23 | Outpatient (BNVA) | payer MEDICAID, SELFPAY | PROVIDERS: PCP Nurse Practitioner Primary Care; Visit Provider Physician Assistant | DX: M76.51 Patellar tendinitis, right knee (principal) | CPT/HCPCS: 99212 ==

== ENCOUNTER 2023-05-21 15:20 | Emergency (ER) | payer MEDICAID, SELFPAY ==
[2023-05-21 15:26] VITALS: BP 113/83; PULSE 110; RESP 16; TEMP 36; O2SAT 98; BMI 36.6
--- NOTE | 2023-05-21 15:35 | ED.GENADULT ---
HPI - General Adult General Chief complaint: Nausea/Vomiting/Diarrhea Stated complaint: Nausea, vomiting, diarrhea, chills History of Present Illness HPI narrative: Left without completion of treatment Related Data Home Medications Medication Instructions Recorded Confirmed Cerovite Advanced Formula 1 tab PO TIDWMEAL 03/15/20 03/28/20 Genotropin 0.2 mg subcut DAILY 03/15/20 03/15/20 Solu-Cortef 100 mg IM PRN Seizures 03/15/20 desmopressin 0.1 mg tablet 0.1 mg PO BID 03/15/20 03/28/20 levothyroxine 150 mcg PO DAILY 03/15/20 03/28/20 dexamethasone 0.5 mg tablet 0.25 mg PO QAM 05/15/22 levothyroxine 150 mcg tablet 150 mcg PO QAM 05/15/22 hydrocortisone 5 mg tablet 20 mg PO Q6H PRN fever 09/13/22 hydrocortisone sod succ (PF) 100 mg IM 09/13/22 mg/2 mL solution for injection (Solu-Cortef Act-O-Vial (PF)) testosterone cypionate 200 mg/mL mg subcut 09/13/22 intramuscular oil Previous Rx's Medication Instructions Recorded acetaminophen 500 mg tablet 1,000 mg (2 x 500 mg) PO QID PRN 01/19/22 pain #30 tabs ibuprofen 600 mg tablet 600 mg PO Q6H PRN pain #14 tabs 01/19/22 Allergies Allergy/AdvReac Type Severity Reaction Status Date / Time No Known Allergies Allergy Verified 01/06/23 15:33 [No Known Allergies*] [facility] Past Medical History Medical History Craniopharyngioma Diabetes insipidus Hypothyroid Surgical History History of craniotomy Family History Family History Mother No problems noted. Father No problems noted. Social History Social History Household Members: Family Housing: Apartment Do you presently have visiting nurse or other home services: No Alcohol intake: never Comment: sleeping Patient Tobacco Use Status: Never used Tobacco Advance Directives: Yes Advance Directives on File: Yes Advance Directives Date on File: 04/03/20 service: No Current occupational status: student Physical Exam ED Vital Signs: Vital Signs - 24 hr 05/21/23 15:26 05/21/23 21:31 Temperature 96.8 F 103.1 F H Pulse Rate 110 H 127 H Respiratory Rate 16 16 Blood Pressure 113/83 105/76 Pulse Oximetry 98 95 Oxygen Delivery Method Room Air Room Air BMI result Body Mass Index 36.6 Course Course Course Narrative: RME: 23 yold male presents to the ED for abdominal pain, diarhea, nausea, and chills. labs and swabs ordered Medications Administered Discontinued Medications Generic Name Dose Route Start Last Admin Trade Name Freq PRN Reason Stop Dose Admin Acetaminophen 975 mg 05/21/23 21:40 05/21/23 21:42 Acetaminophen 325 Mg Tablet PO 05/21/23 21:41 975 mg ONCE ONE Administration Medical Decision Making Lab Data 05/21/23 15:55 05/21/23 15:55 Labs: Lab Results 05/21/23 05/21/23 Range/Units 15:55 15:56 WBC 9.8 (4.8-10.8) X10*3/uL RBC 5.34 (4.60-5.80) X10*6/uL Hgb 16.3 (14.0-18.0) g/dl Hct 45.0 (42.0-52.0) % MCV 84.3 (80.0-98.0) fL MCH 30.5 (27.0-33.0) pg MCHC 36.2 H (31.0-36.0) g/dl RDW 12.9 (11.0-16.0) % Plt Count 236 (160-400) X10*3/uL MPV 10.3 (9.4-12.4) fL Immature Gran % (Auto) 0.5 H (0.0-0.4) % Neut % (Auto) 71.5 (45-73) % Lymph % (Auto) 23.0 (20-40) % [place] % (Auto) 2.9 (2-11) % Eos % (Auto) 1.9 (0-4) % Baso % (Auto) 0.2 (0-2) % Lymph # (Auto) 2.3 (1.2-4.9) X10*3/uL [place] # (Auto) 0.3 (0.1-1.2) X10*3/uL Eos # (Auto) 0.2 (0.0-0.4) X10*3/uL Baso # (Auto) 0.0 (0.0-0.2) X10*3/uL Abs Immat Gran (auto) 0.05 H (0.00-0.03) X10*3/uL Absolute Neuts (auto) 7.0 (2.0-8.3) x10*3/uL Absolute Nucleated RBC 0.000 (0.0-0.012) X10*3/uL Nucleated RBC % (auto) 0.0 (0.0-0.2) /100WBC Sodium 142 (135-145) mmol/L Potassium 3.6 (3.3-5.1) mmol/L Chloride 105 (96-108) mmol/L Carbon Dioxide 23 (22-29) mmol/L Anion Gap 18 (12-20) BUN 7 L (9-16) mg/dL Creatinine 0.83 (0.5-1.4) mg/dL Estim Creat Clear Calc 152.9 Estimated GFR > 60 Random Glucose 98 (60-115) mg/dL Calcium 10.2 (8.4-10.2) mg/dL Total Bilirubin 1.8 H (0.0-1.0) mg/dL AST 136 H (5-37) U/L ALT 109 H (0-40) U/L Alkaline Phosphatase 110 (39-117) U/L Total Protein 8.9 H (6.5-8.0) g/dL Albumin 4.8 (3.5-5.0) g/dL Lipase 22 (8-78) U/L COVID-19 (ALEX) Negative (Negative) COVID-19 Clin Com See Note Influenza Type A (GARTH) Negative (Negative) Influenza Type B (GARTH) Negative (Negative) Influenza A & B Note See Note S. pyogenes GrpA GARTH Negative (Negative) Discharge Plan Discharge Clinical Impression: Gastroenteritis Patient Disposition: Left W/O Completing Treatment Prescriptions: No Action Solu-Cortef 100 mg IM PRN (Reason: Seizures) Rx Instructions: this medication was filled on 03/18/2018 last and never used. levothyroxine 150 mcg PO DAILY desmopressin 0.1 mg Tablet 0.1 mg PO BID Genotropin 12 MG 0.2 mg subcut DAILY Cerovite Advanced Formula 1 tab PO TIDWMEAL acetaminophen 500 mg tablet 1,000 mg PO QID PRN (Reason: pain) Qty: 30 0RF ibuprofen 600 mg tablet 600 mg PO Q6H PRN (Reason: pain) Qty: 14 0RF dexamethasone 0.5 mg tablet 0.25 mg PO QAM levothyroxine 150 mcg tablet 150 mcg PO QAM Solu-Cortef Act-O-Vial (PF) 100 mg/2 mL recon soln IM testosterone cypionate 200 mg/mL oil subcut hydrocortisone 5 mg tablet 20 mg PO Q6H PRN (Reason: fever) Discharge Date/Time: 05/21/23 23:35
[2023-05-21 16:05] LABS: MANUAL DIFF FLAG NO
[2023-05-21 16:06] LABS: Basophils Percent Auto 0.2 % (0-2); Eosinophils Absolute Auto 0.2 X10*3/uL (0.0-0.4); Eosinophils Percent Auto 1.9 % (0-4); Hemoglobin 16.3 g/dl (14.0-18.0); Imm Gran Abs Auto 0.05 X10*3/uL (0.00-0.03); Imm Gran Pct Auto 0.5 % (0.0-0.4); Lymphocytes Absolute Auto 2.3 X10*3/uL (1.2-4.9); Mean Corpuscular HGB Conc 36.2 g/dl (31.0-36.0); Mean Corpuscular Hemoglobin 30.5 pg (27.0-33.0); Mean Corpuscular Volume 84.3 fL (80.0-98.0); Mean Platelet Volume 10.3 fL (9.4-12.4); Monocytes Absolute Auto 0.3 X10*3/uL (0.1-1.2); Monocytes Percent Auto 2.9 % (2-11); Neutrophils Percent Auto 71.5 % (45-73); Platelet Count 236 X10*3/uL (160-400); Red Blood Count 5.34 X10*6/uL (4.60-5.80); Red Cell Distribution Width 12.9 % (11.0-16.0); White Blood Count 9.8 X10*3/uL (4.8-10.8)
[2023-05-21 16:24] LABS: COVID-19 Test Negative (Negative); IDNOW Serial# 08D9AD1C; IDNOW Serial# 9DB6401D; Influenza A Negative (Negative); Influenza B2 Negative (Negative)
[2023-05-21 16:25] LABS: IDNOW Serial# 58CA691E; Strep A Nucleic Acid Negative (Negative)
[2023-05-21 16:26] LABS: Alanine Aminotransferase 109 U/L (0-40); Albumin Level 4.8 g/dL (3.5-5.0); Alkaline Phosphatase 110 U/L (39-117); Anion Gap 18 (12-20); Aspartate Amino Transferase 136 U/L (5-37); Bilirubin Total 1.8 mg/dL (0.0-1.0); Blood Urea Nitrogen 7 mg/dL (9-16); Calcium 10.2 mg/dL (8.4-10.2); Carbon Dioxide 23 mmol/L (22-29); Chloride 105 mmol/L (96-108); Creatinine Clr Calc Pharmacy 152.9; Estimated Glomerular Filt Rate > 60; Glucose Random 98 mg/dL (60-115); Lipase 22 U/L (8-78); Potassium 3.6 mmol/L (3.3-5.1); Sodium 142 mmol/L (135-145); Total Protein 8.9 g/dL (6.5-8.0)
[2023-05-21 21:31] VITALS: BP 105/76; PULSE 127; RESP 16; TEMP 39.5; O2SAT 95
--- NOTE | 2023-05-21 21:40 | PC.NURSE ---
pt reassessed @ 2140 temp 103.1 hr 127 this rn made international first officer aware order placed for tylenol po pt to be medicated according to mar
[2023-05-21] MEDS: Acetaminophen 325 MG TABLET 975 MG PO (21:42)
== END 2023-05-21 23:35 | disposition left against medical advice (07) ==
PROVIDERS: Physician Assistant; Emergency Provider Emergency Medicine; PCP Nurse Practitioner Primary Care
DX: K52.9 Noninfective gastroenteritis and colitis, unspecified (principal); E23.2 Diabetes insipidus; Z11.52 Encounter for screening for COVID-19; Z79.899 Other long term (current) drug therapy
CPT/HCPCS: 80053; 83690; 85025; 87502; 87635; 87651; 99282; 99283

== ENCOUNTER 2023-05-29 14:06 | Outpatient (REF) | payer MEDICAID, SELFPAY ==
[2023-06-01 17:09] LABS: TS Negative Control Passed; TS Panel A 0; TS Panel B 0; TS Positive Control Passed; TSpotTB Negative (Negative)
== END 2023-05-29 14:07 | disposition home or self-care (01) ==
LOC: HO.HHCL 14:06
PROVIDERS: Visit Provider Nurse Practitioner Primary Care
DX: Z11.1 Encounter for screening for respiratory tuberculosis (principal)
CPT/HCPCS: 36415; 86481

== ENCOUNTER 2023-06-06 11:30 | Outpatient (REF) | payer MEDICAID, SELFPAY ==
[2023-06-06 13:45] LABS: Alanine Aminotransferase 153 U/L (0-40); Albumin Level 4.3 g/dL (3.5-5.0); Alkaline Phosphatase 101 U/L (39-117); Anion Gap 12 (12-20); Aspartate Amino Transferase 145 U/L (5-37); Bilirubin Total 0.7 mg/dL (0.0-1.0); Blood Urea Nitrogen 5 mg/dL (9-16); Calcium 9.4 mg/dL (8.4-10.2); Carbon Dioxide 28 mmol/L (22-29); Chloride 106 mmol/L (96-108); Estimated Glomerular Filt Rate > 60; Glucose Random 84 mg/dL (60-115); Potassium 3.4 mmol/L (3.3-5.1); Sodium 143 mmol/L (135-145)
[2023-06-06 14:05] LABS: HBS Num1 13.38 mIU/mL (0-7.99); HBc Num1 0.09 S/CO (0.00-0.79); HBsAGNum1 0.37 S/CO (0.00-0.99); HIV AB/AG Nonreactive (Nonreactive); HIV Num 1 0.15 S/CO (0.00-0.99); Hepatitis A Antibody IgM 0.15 Index (0-0.79); Hepatitis B Core Antibody Nonreactive (Nonreactive); Hepatitis B Surface Antigen Negative (Negative); ~HepC Num1 0.11 S/CO (0.00-0.79); ~Hepatitis A Antibody IgM Nonreactive (Nonreactive); ~Hepatitis B Surface Antibody REACTIVE (Nonreactive); ~Hepatitis C Antibody Nonreactive (Nonreactive)
== END 2023-06-06 11:31 | disposition home or self-care (01) ==
LOC: HO.HHCL 11:30
PROVIDERS: Visit Provider Nurse Practitioner Family
DX: Z00.00 Encounter for general adult medical examination without abnormal findings (principal); R79.89 Other specified abnormal findings of blood chemistry
CPT/HCPCS: 36415; 80053; 86704; 86706; 86709; 86803; 87340; 87389

== ENCOUNTER 2023-07-23 09:02 | Outpatient (REF) | payer MEDICAID, SELFPAY ==
--- NOTE | ~2023-07-23 | US_ITS ---
EXAMINATION: US ABDOMEN COMPLETE CLINICAL INFORMATION: Elevated LFTs. COMPARISON: Limited abdominal ultrasound 03/28/2020. CT abdomen and pelvis 03/14/2020. Ultrasound abdomen complete 01/10/2019. TECHNIQUE: Real-time imaging of the abdominal viscera. Technically difficult study secondary to bowel gas and body habitus. FINDINGS: PANCREAS: Limited. The visualized pancreatic head and body are normal in appearance. The remainder of the pancreas is obscured from visualization by the overlying bowel gas. ABDOMINAL AORTA: The proximal and distal segments are normal in caliber. The mid segment is obscured by overlapping bowel gas. INFERIOR VENA CAVA: Visualized portions are normal. LIVER: There is mild hepatomegaly, with a longitudinal span of 18.8 cm. The liver contour is normal. There is diffuse increased liver parenchymal echogenicity. No focal hepatic lesion. There is no intrahepatic biliary duct dilatation seen. GALLBLADDER: The gallbladder is physiologically distended. Multiple layering gallstones are present. No evidence of gallbladder wall thickening or pericholecystic fluid. COMMON BILE DUCT: Increased in caliber, measuring 1.1 cm in diameter. RIGHT KIDNEY: No hydronephrosis. No renal calculi or focal parenchymal lesions. The kidney measures 10.4 cm in maximum dimension. At the interpolar aspect, adjacent hyperechoic focus which does not meet formal ultrasound criteria for a calculus likely represents a vascular calcifications. LEFT KIDNEY: Normal. No hydronephrosis. No renal calculi or focal parenchymal lesions. The kidney measures 10.0 cm in maximum dimension. SPLEEN: The spleen measures 15.5 cm in maximum dimension. No focal finding. FREE FLUID: None. US/US abdomen complete IMPRESSION: 1. There is hepatosplenomegaly. 2. There is cholelithiasis. 3. There is increase in caliber of the common bile duct, without intrahepatic biliary duct dilatation. No pancreatic mass or choledocholith is noted. If clinically indicated, this could be further evaluated with abdominal CT or MRI/MRCP. 4. Technically limited ultrasound examination of the pancreas and abdominal aorta.
== END 2023-07-23 09:03 | disposition home or self-care (01) ==
LOC: HO.US 09:02
PROVIDERS: PCP Nurse Practitioner Primary Care; Visit Provider Nurse Practitioner Family
DX: R79.89 Other specified abnormal findings of blood chemistry (principal)
CPT/HCPCS: 76700

== ENCOUNTER 2024-01-02 14:35 | Outpatient (AMB) | payer MEDICAID, SELFPAY ==
[2024-01-02 14:39] VITALS: BP 78/44; PULSE 84; BMI 40.4
--- NOTE | 2024-01-02 14:39 | MHC.OFFVIS ---
Vital Signs 01/02/24 14:39 Height 5 ft 5 in Weight 242 lb 8.136 oz BMI 40.4 BP 78/44 L Blood Pressure Location Lt radial Position Sitting Pulse 84 Intake Visit Reasons: Elevated LFTs Intake Note: David presents in the office as a new patient for elevated LFTs. CC: No concerns at this time - here due to his elevated labs. 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 Pt himself does not report any GI issues including abd pain, N,V, changes in bowel habits. Does not drink. No new meds. No recent travel. Biological father had chronic HCV (). From chart review has had abnormal LFTs since at least 2019. 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 [place] [facility] [place] with [place]o [place] [facility] but seems lost to follow up. [place] 2023: hepatomegaly. [facility], [facility] Medical History (Updated 01/03/24 @ 14:07 by Tonya Goode MD) Hypothyroid Diabetes insipidus Craniopharyngioma Surgical History (Updated 01/02/24 @ 14:48 by KUSHAL Rome) History of esophagogastroduodenoscopy (EGD) History of craniotomy Family History Mother No problems noted. Father No problems noted. Social History Household Members: Family Housing: Apartment Do you presently have visiting nurse or other home services: No Alcohol intake: never Comment: sleeping Patient Tobacco Use Status: Never used Tobacco Advance Directives Date on File: 04/03/20 service: No Current occupational status: student Review of Systems Const All systems reviewed & are unremarkable except as noted in HPI and below Physical Exam Vital Signs: Last Vital Signs Pulse 84 01/02/24 14:39 BP 78/44 L 01/02/24 14:39 BMI result Body Mass Index 40.4 No apparent distress, with obesity Short stature Nonicteric Abdomen soft, nondistended Alert and oriented x3, normal gait Assessment & Plan Assessment & Plan (1) Elevated LFTs: Code(s): R79.89 - Other specified abnormal findings of blood chemistry Category: Medical (2) Hypothalamic obesity: Code(s): E66.8 - Other obesity Category: Medical (3) Erythrocytosis: Code(s): D75.1 - Secondary polycythemia Category: Medical Plan 1. Based on overall clinical assessment, appears to have MAFLD/CONNER in the setting of hypovolemic obesity. Will also check labs to r/o other etiologies for chronic liver disease including A1AT and Wilsons given age. Will also check infectious hep given fam hx. In the meantime, reviewed that if this is truly CONNER, will need aggressive multi-pronged approach with lifestyle intervention, meds, surgery. Will check with bariatric surgery colleagues for ? benefit of surgical intervention in this unique scenario of hypothalamic obesity which is more to do with altered energy balance i.e reduced calorie expenditure rather than purely excessive caloric intake. Plan: - Labs as below - Counseling for diet and exercise. - If labs normal - will proceed with liver bx for histological assessment - will also be useful to get degree of fibrosis. Follow up 3 months Orders: Orders Alpha 1 Anti-trypsin 01/02/24 - Other specified abnormal findings of blood chemistry Comprehensive Met. Panel 01/02/24 - Other specified abnormal findings of blood chemistry Hemoglobin A1c 01/02/24 - Other specified abnormal findings of blood chemistry Hepatitis C Antibody 01/02/24 - Other specified abnormal findings of blood chemistry IRON PROFILE 01/02/24 - Other specified abnormal findings of blood chemistry Lipid Panel 01/02/24 - Other specified abnormal findings of blood chemistry Mitochondrial Antibody 01/02/24 - Other specified abnormal findings of blood chemistry Phosphatidylethanol, Blood 01/02/24 - Other specified abnormal findings of blood chemistry Prothrombin Time INR 01/02/24 - Other specified abnormal findings of blood chemistry Smooth Muscle Antibody 01/02/24 - Other specified abnormal findings of blood chemistry Transglutaminase IgA 01/02/24 - Other specified abnormal findings of blood chemistry CONNOR Reflex Titer and Pattern 01/02/24 - Other specified abnormal findings of blood chemistry C Reactive Protein 01/02/24 - Other specified abnormal findings of blood chemistry Ceruloplasmin 01/02/24 - Other specified abnormal findings of blood chemistry Ferritin 01/02/24 - Other specified abnormal findings of blood chemistry Complete Blood Count no Diff 01/02/24 - Other specified abnormal findings of blood chemistry Gamma Glutamyl Transpeptidase 01/02/24 - Other specified abnormal findings of blood chemistry Hepatitis A IgG 01/02/24 - Other specified abnormal findings of blood chemistry Hepatitis B Core Antibody 01/02/24 - Other specified abnormal findings of blood chemistry Hepatitis B Surface Antibody 01/02/24 - Other specified abnormal findings of blood chemistry Hepatitis B Surface Antigen 01/02/24 - Other specified abnormal findings of blood chemistry Immunoglobulin A 01/02/24 - Other specified abnormal findings of blood chemistry Liver Kidney Microsomal Ab 01/02/24 - Other specified abnormal findings of blood chemistry Coding Level of Care Code New Pt Level 4 (19259) Diagnoses Elevated LFTs Hypothalamic obesity E66.8 Erythrocytosis D75.1
== END 2024-01-02 15:42 | disposition home or self-care (01) ==
PROVIDERS: PCP Nurse Practitioner Primary Care; Visit Provider Internal Medicine
DX: R79.89 Other specified abnormal findings of blood chemistry (principal); E66.8 Other obesity; D75.1 Secondary polycythemia
CPT/HCPCS: 99204

== ENCOUNTER → 2024-01-02 14:35 | Outpatient (BNVA) | payer MEDICAID, SELFPAY | PROVIDERS: PCP Nurse Practitioner Primary Care; Visit Provider Internal Medicine | DX: R79.89 Other specified abnormal findings of blood chemistry (principal); E66.8 Other obesity; D75.1 Secondary polycythemia; Z68.41 Body mass index [BMI] 40.0-44.9, adult | CPT/HCPCS: 99202 ==

== ENCOUNTER 2024-04-02 13:42 | Outpatient (AMB) | payer MEDICAID, SELFPAY ==
--- NOTE | 2024-04-02 13:45 | A.OFFVIS_ITS ---
Vital Signs 04/02/24 13:47 Height 5 ft 5 in Weight 229 lb 4.492 oz BMI 38.2 BP 116/73 Blood Pressure Location Lt brachial Position Sitting Pulse 69 Intake Visit Reasons: 3 month follow up Intake Note: David presents in the office as a 3 month follow up. CC: He states that he is not having any concerns today. 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 Pt himself does not report any GI issues including abd pain, N,V, changes in bowel habits. Does not drink. No new meds. No recent travel. Biological father had chronic HCV (). From chart review has had abnormal LFTs since at least 2018. 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 Used to be followed by pediatric endocrinologists at [facility] [place]. Was established with adult endo at [facility] [place] but seems lost to follow up. [place] 2023: hepatomegaly. 04/02/24: Here for 3m follow up. Has been working on his weight and has already lost 15 lbs! Has been watching his diet and staying more active. Pt also re-established care with [facility] [place] endocrinology for hormonal replacement. No acute GI concerns today. Unfortunately labs not done by pt yet. [facility] Medical History Hypothyroid Diabetes insipidus Craniopharyngioma Surgical History History of esophagogastroduodenoscopy (EGD) History of craniotomy Family History Mother No problems noted. Father No problems noted. Social History Household Members: Family Housing: Apartment Do you presently have visiting nurse or other home services: No Alcohol intake: never Comment: sleeping Patient Tobacco Use Status: Never used Tobacco Advance Directives Date on File: 04/03/20 service: No Current occupational status: student Review of Systems Const All systems reviewed & are unremarkable except as noted in HPI and below Physical Exam Vital Signs: Last Vital Signs Pulse 69 04/02/24 13:47 BP 116/73 04/02/24 13:47 BMI result Body Mass Index 38.2 No apparent distress, with obesity Nonicteric Abdomen soft, nondistended Alert and oriented x3, normal gait Assessment & Plan Assessment & Plan (1) Elevated LFTs: Code(s): R79.89 - Other specified abnormal findings of blood chemistry Category: Medical (2) Hypothalamic obesity: Code(s): E66.8 - Other obesity Category: Medical (3) Erythrocytosis: Code(s): D75.1 - Secondary polycythemia Category: Medical Plan Based on overall clinical assessment, appears to have MAFLD/CONNER in the setting of hypothalamic obesity. Labs still pending to r/o other etiologies for chronic liver disease including A1AT and Wilsons given age. In the meantime, he was encouraged on working on his weight management. Goal is to lose at least 10% of baseline weight i.e 40#. He is down by 15 lbs today. Case was also briefly reviewed with bariatric surgery colleagues for ? benefit of surgical intervention in this unique scenario of hypothalamic obesity which is more to do with altered energy balance i.e reduced calorie expenditure rather than purely excessive caloric intake. As per their opinion, may have meaningful custodial benefit. Will revisit referral once work up has been done. Plan: - Labs pending - Counseling for diet and exercise. - If labs normal - will proceed with liver bx for histological assessment - will also be useful to get degree of fibrosis. - If CONNER confirmed, will have him see bariatrics. - Management of hypothalamic axis as per [facility] endocrinology. Follow up 3 months Orders: Orders US abdomen comp w elastography 04/02/24 R7.89 - Other specified abnormal findings of blood chemistry Coding Level of Care Code Est Pt Level 4 (78792) Diagnoses Elevated LFTs Hypothalamic obesity E66.8 Erythrocytosis D75.1
[2024-04-02 13:47] VITALS: BP 116/73; PULSE 69; BMI 38.2
== END 2024-04-02 14:19 | disposition home or self-care (01) ==
PROVIDERS: PCP Nurse Practitioner Primary Care; Visit Provider Internal Medicine
DX: R74.01 Elevation of levels of liver transaminase levels (principal); D75.1 Secondary polycythemia
CPT/HCPCS: 99214

== ENCOUNTER → 2024-04-02 13:42 | Outpatient (BNVA) | payer MEDICAID, SELFPAY | PROVIDERS: PCP Nurse Practitioner Primary Care; Visit Provider Internal Medicine | DX: R79.89 Other specified abnormal findings of blood chemistry (principal); E66.89 Other obesity not elsewhere classified; D75.1 Secondary polycythemia; Z68.38 Body mass index [BMI] 38.0-38.9, adult | CPT/HCPCS: 99212 ==

== ENCOUNTER 2024-04-29 09:14 | Outpatient (REF) | payer MEDICAID, SELFPAY ==
--- NOTE | ~2024-04-29 | US_ITS ---
EXAMINATION: US ABDOMEN COMPLETE WITH LIVER ELASTOGRAPHY HISTORY: R79.89 - Other specified abnormal findings of blood chemistry TECHNIQUE: Real-time grayscale ultrasound imaging of the abdomen was performed and images were reviewed. COMPARISON: Comparison is made with the prior examination dated 07/23/2023. FINDINGS: Liver: The liver is normal in size, but demonstrates increased echotexture, consistent with steatosis. No focal mass or intrahepatic biliary ductal dilatation is identified. There is normal hepatopedal flow in the portal vein. Ultrasound elastography of the liver was performed with 10 separate measurements of the liver parenchyma with the patient in the supine position. Measurements were obtained approximately 2 cm below Zachery's capsule and perpendicular to the capsule. Images are of satisfactory quality. The median shear wave velocity is 1.42 m/s. The interquartile range/median (IQR/median) is 0.23. Gallbladder and biliary tree: There are numerous shadowing calculi in the gallbladder. There is no wall thickening or pericholecystic fluid. There is no sonographic Proctor sign. The common bile duct is normal in caliber measuring 3 mm. Kidneys: The right kidney measures 9.4 cm in length. The left kidney measures 9.8 cm in length. The kidneys are unremarkable, without evidence of masses, hydronephrosis, or calculi. Pancreas: The pancreatic head, neck, and body are unremarkable. The pancreatic tail is obscured by bowel gas. Spleen: The spleen is enlarged measuring 15.1 cm in length. Abdominal aorta and inferior vena cava: The visualized portions of the abdominal aorta and inferior vena cava are normal in caliber. There is no free fluid in the abdomen. US/US abdomen comp w elastography IMPRESSION: Hepatic steatosis. Cholelithiasis. Splenomegaly. The median shear wave velocity is 1.42 m/s, corresponding to a median liver stiffness of 6.19 kPa. The IQR/median value is 0.23. This is unreliable as the value is > 0.15 (15%). Findings are indicative of a low elastography value which rules out advanced chronic liver disease in asymptomatic patients. REFERENCE: Society of Radiologists in Ultrasound Liver Stiffness Thresholds (2020): LIVER STIFFNESS THRESHOLDS: *Shear wave velocity less than 1.3 m/s (Liver Stiffness equal or less than 5 kPa): High probability of being normal. *Shear wave velocity less than 1.7 m/s (Liver Stiffness less than 9 kPa): In the absence of other known clinical signs, rules out compensated advanced chronic liver disease. *Shear wave velocity between 1.7-2.1 m/s (Liver Stiffness 9-13 kPa): Suggestive of compensated advanced chronic liver disease but need further test for confirmation. *Shear wave velocity between 2.1-2.4 m/s (Liver Stiffness 13-17 kPa): Rules in compensated advanced chronic liver disease. *Shear wave velocity greater than 2.4 m/s (Liver Stiffness over 17 kPa): Suggestive of clinically significant portal hypertension. QUALITY OF DATA SET: *IQR/Median value equal or less than 0.15 implies a quality data set. *IQR/Median value over 0.15 implies a poor quality data set. SIGNIFICANT CHANGE FROM PRIOR EXAM: Significant change if liver stiffness measurement is 10% or greater from prior exam. OTHER CONSIDERATIONS: The stage of liver fibrosis may be overestimated in the setting of acute hepatitis, liver inflammation, elevated liver function tests, hepatic vascular congestion, obstructive cholestasis, non-fasting state, and infiltrative diseases such as amyloidosis and lymphoma. In some patients with NAFLD, the liver stiffness thresholds for compensated advanced chronic liver disease may be lower. In causes other than viral hepatitis and NAFLD, liver stiffness thresholds are not well established. Electronically signed by: Jake Herrera MD 05/03/2024 07:37 AM [facility]
[2024-04-29 10:51] LABS: Hematocrit 40.5 % (42.0-52.0); Hemoglobin 14.5 g/dl (14.0-18.0); Mean Corpuscular HGB Conc 35.8 g/dl (31.0-36.0); Mean Corpuscular Hemoglobin 29.4 pg (27.0-33.0); Mean Corpuscular Volume 82.2 fL (80.0-98.0); Mean Platelet Volume 10.7 fL (9.4-12.4); Platelet Count 272 X10*3/uL (160-400); Red Blood Count 4.93 X10*6/uL (4.60-5.80); Red Cell Distribution Width 13.8 % (11.0-16.0); White Blood Count 8.6 X10*3/uL (4.8-10.8)
[2024-04-29 11:00] LABS: Estimated Average Glucose 82 mg/dL; Hemoglobin A1C 96.1194 umol/L; Hemoglobin A1c % 4.5 % (<6.0); Total Hemoglobin (HGBA1C) 3739.4173 umol/L
[2024-04-29 11:03] LABS: INTERNATIONAL NORM RATIO 1.2 (0.9-1.1); Prothrombin Time 13.4 SEC (10.9-12.4)
[2024-04-29 11:37] LABS: Alanine Aminotransferase 52 U/L (0-40); Albumin Level 4.2 g/dL (3.5-5.0); Anion Gap 11 (12-20); Aspartate Amino Transferase 84 U/L (5-37); Bilirubin Total 1.9 mg/dL (0.0-1.0); Blood Urea Nitrogen 3 mg/dL (9-16); C Reactive Protein 0.55 mg/dL (< or = 0.50); Calcium 9.5 mg/dL (8.4-10.2); Carbon Dioxide 29 mmol/L (22-29); Chloride 110 mmol/L (96-108); Cholesterol 206 mg/dL (<200); Estimated Glomerular Filt Rate > 60; Gamma Glutamyl Transpeptidase 98 U/L (11-51); Glucose Random 87 mg/dL (60-115); HDL Cholesterol 25 mg/dL (>40); Iron 90 mcg/dL (45-160); LDL Cholesterol Calculated 119 mg/dL (<100); Percent Iron Saturation 36 % (15-50); Potassium 3.6 mmol/L (3.3-5.1); Sodium 146 mmol/L (135-145); Total Iron Binding Capacity 251 mcg/dL (228-428); Total Protein 7.6 g/dL (6.5-8.0); Triglycerides 312 mg/dL (<150); Unsaturated Iron Binding 161 ug/dL
[2024-04-29 11:46] LABS: Ferritin 154 ng/mL (20-250)
[2024-04-29 12:26] LABS: Alkaline Phosphatase 108 U/L (39-117)
[2024-04-29 12:57] LABS: HBS Num1 18.41 mIU/mL (0-7.99); HBsAGNum1 0.41 S/CO (0.00-0.99); Hepatitis B Core Antibody Nonreactive (Nonreactive); Hepatitis B Surface Antigen Negative (Negative); ~Hepatitis B Surface Antibody REACTIVE (Nonreactive); ~Hepatitis C Antibody Nonreactive (Nonreactive)
[2024-04-29 12:58] LABS: Hepatitis A Antibody IgG REACTIVE (Nonreactive); ~Hepatitis A Antibody IgG 4.23 S/CO (0.00-0.99)
[2024-04-30 18:18] LABS: Immunoglobulin A 301 mg/dL (47-310)
[2024-04-30 19:53] LABS: Transglutaminase IgA <1.0 U/mL
[2024-05-02 23:49] LABS: Liver Kidney Microsomal Ab <=20.0 U (<=20.0); Smooth Muscle Antibody 43 U (<20)
[2024-05-03 07:33] LABS: Anti Nuclear Antibody Screen NEGATIVE (NEGATIVE)
[2024-05-04 11:04] LABS: Mitochondrial Antibodies NEGATIVE (NEGATIVE)
[2024-05-05 10:25] LABS: Alpha 1 Anti-trypsin 131; Ceruloplasmin 25
[2024-05-05 10:26] LABS: Phosphatidylethanol 16:0-18:1 NEGATIVE; Phosphatidylethanol 16:0-18:2 NEGATIVE
== END 2024-04-29 09:15 | disposition home or self-care (01) ==
LOC: HO.US 09:14
PROVIDERS: PCP Nurse Practitioner Primary Care; Visit Provider Internal Medicine
DX: R79.89 Other specified abnormal findings of blood chemistry (principal)
CPT/HCPCS: 36415; 76700; 76981; 80053; 80061; 80321; 82103; 82390; 82728; 82784; 82977; 83036; 83540; 85027; 85610; 86015; 86038; 86140; 86364; 86376; 86381; 86704; 86706; 86708; 86803; 87340

== ENCOUNTER → 2024-04-29 09:16 | Outpatient (BNV) | payer MEDICAID, SELFPAY | PROVIDERS: PCP Nurse Practitioner Primary Care; Visit Provider Radiology Diagnostic Radiology | DX: K80.20 Calculus of gallbladder without cholecystitis without obstruction (principal); K76.0 Fatty (change of) liver, not elsewhere classified; R16.1 Splenomegaly, not elsewhere classified | CPT/HCPCS: 76700 ==